=== PATIENT | male | born 1930 | race Caucasian/White ===

== ENCOUNTER → 2016-10-07 | Outpatient (CLI) | payer MEDICARE ==
[~2016-10-07] MED LIST: BACT800T5 PO; CARB25TA9 PO; CART120C PO; CART240C PO; CHOL1CHW5 CHEW; COLA100C PO; COUM5TAB PO; COUM7.5T PO; DILT31TA PO; FERR240T PO; FURO40TA PO; IRON18TA2 PO; LIPI10TA PO; LOSA50TA PO; METO2.5T PO; MULT1TAB46 PO; MULT1TAB85 PO; NAME10TA PO; OMEP20TA PO; POTA-163 PO; POTA10TA2 PO; RANI150C PO; WARF-21 PO; WARF-23 PO; ZANTTAB9 PO
[2016-10-07 11:24] LABS: INTERNATIONAL NORMALIZED RATIO 2.7 RATIO
== END ==
LOC: PLAB 10:45
PROVIDERS: ATTEND Internal Medicine Cardiovascular Disease
DX: I26.99 Other pulmonary embolism without acute cor pulmonale (principal)
CPT/HCPCS: 36415; 85610

== ENCOUNTER → 2016-10-28 | Outpatient (CLI) | payer MEDICARE ==
[2016-10-28 15:08] LABS: INTERNATIONAL NORMALIZED RATIO 1.9 RATIO; PROTHROMBIN TIME - PATIENT 22.1 SEC (9.8-11.6)
== END ==
LOC: PLAB 13:52
PROVIDERS: ATTEND Internal Medicine Cardiovascular Disease
DX: I48.91 Unspecified atrial fibrillation (principal); D64.9 Anemia, unspecified
CPT/HCPCS: 36415; 85610

== ENCOUNTER → 2016-11-12 | Outpatient (CLI) | payer MEDICARE ==
[2016-11-12 15:53] LABS: BICARBONATE 31.6 MEQ/L (21.0-32.0); POTASSIUM 4.3 MEQ/L (3.5-5.1)
[2016-11-12 15:55] LABS: AUTOMATED NEUTROPHIL # 4.8 TH/MM3 (1.8-7.7); BASOPHIL % 0.7 % (0.0-2.0); EOSINOPHIL # 0.3 TH/MM3 (0-0.4); EOSINOPHIL % 4.3 % (0.0-4.0); HEMATOCRIT 30.7 % (39.0-51.0); HEMO FLAGS DIFF FINAL; LYMPH % 13.9 % (9.0-44.0); LYMPHOCYTE # 0.9 TH/MM3 (1.0-4.8); MEAN CELL VOLUME 88.6 FL (80.0-100.0); MEAN CORPUSCULAR HEMOGLOBIN 30.2 PG (27.0-34.0); MEAN CORPUSCULAR HGB CONC 34.1 % (32.0-36.0); NEUT % 72.1 % (16.0-70.0); PLATELET COUNT 225 TH/MM3 (150-450); RED BLOOD COUNT 3.46 MIL/MM3 (4.50-5.90); RED CELL DISTRIBUTION WIDTH 15.3 % (11.6-17.2); WHITE BLOOD COUNT 6.7 TH/MM3 (4.0-11.0)
[2016-11-12 16:03] LABS: INTERNATIONAL NORMALIZED RATIO 1.7 RATIO; PROTHROMBIN TIME - PATIENT 19.4 SEC (9.8-11.6)
== END ==
LOC: CLAB 15:10
PROVIDERS: ATTEND Internal Medicine Nephrology
DX: I48.91 Unspecified atrial fibrillation (principal); I12.9 Hypertensive chronic kidney disease with stage 1 through stage 4 chronic kidney disease, or unspecified chronic kidney disease; N18.3 Chronic kidney disease, stage 3 (moderate)
CPT/HCPCS: 36415; 80048; 85025; 85610

== ENCOUNTER 2016-11-21 07:46 | Inpatient (IN) | payer MEDICARE ==
[2016-11-21] VITALS (29 sets, daily range): BP systolic 98–151; BP diastolic 43–83; PULSE 51–138; RESP 14–20; TEMP 97.6–98.4; O2SAT 92–100
[~2016-11-21] VITALS: Ht 177.8 cm; Wt 68.8 kg
[~2016-11-21 07:46] MED LIST changes: -BACT800T5 PO; -CARB25TA9 PO; -CART120C PO; -CHOL1CHW5 CHEW; -COLA100C PO; -COUM7.5T PO; -DILT31TA PO; -FERR240T PO; -IRON18TA2 PO; -MULT1TAB46 PO; -MULT1TAB85 PO; -OMEP20TA PO; -POTA10TA2 PO; -RANI150C PO; -WARF-21 PO; -WARF-23 PO
[2016-11-21] MEDS ORDERED: WARF-21 PO ×2 (08:15→10:53)
[2016-11-21] MEDS ORDERED: MULT1TAB85 PO (08:15)
[2016-11-21] MEDS ORDERED: CHOL1CHW5 CHEW ×2 (08:15→10:53)
[2016-11-21] MEDS ORDERED: COUM5TAB PO ×2 (08:15→10:53)
[2016-11-21] MEDS ORDERED: CARB25TA9 PO (08:15)
[2016-11-21] MEDS ORDERED: SODIUM CHLORIDE 0.9% FLUSH 5 ML FLUSH IVF PRN (08:30)
[2016-11-21] MEDS ORDERED: DILTIAZEM HCL 25 MG/5 ML VIAL IV PUSH ONE (08:30)
[2016-11-21] MEDS ORDERED: ASPIRIN 81 MG CHEW TAB PO ONE (08:30)
[2016-11-21 08:44] LABS: AUTOMATED NEUTROPHIL # 7.1 TH/MM3 (1.8-7.7); BASOPHIL # 0.1 TH/MM3 (0-0.2); BASOPHIL % 0.7 % (0.0-2.0); EOSINOPHIL # 0.2 TH/MM3 (0-0.4); EOSINOPHIL % 1.9 % (0.0-4.0); HEMATOCRIT 38.5 % (39.0-51.0); HEMO FLAGS DIFF FINAL; LYMPH % 8.9 % (9.0-44.0); LYMPHOCYTE # 0.8 TH/MM3 (1.0-4.8); MEAN CELL VOLUME 88.6 FL (80.0-100.0); MEAN CORPUSCULAR HEMOGLOBIN 30.6 PG (27.0-34.0); MEAN CORPUSCULAR HGB CONC 34.6 % (32.0-36.0); MONO % 7.5 % (0.0-8.0); PLATELET COUNT 241 TH/MM3 (150-450); RED BLOOD COUNT 4.34 MIL/MM3 (4.50-5.90); RED CELL DISTRIBUTION WIDTH 15.4 % (11.6-17.2); WHITE BLOOD COUNT 8.8 TH/MM3 (4.0-11.0)
[2016-11-21 08:54] LABS: INTERNATIONAL NORMALIZED RATIO 1.8 RATIO; PROTHROMBIN TIME - PATIENT 20.7 SEC (9.8-11.6)
[2016-11-21 09:00] LABS: APTT (PATIENT) 26.1 SEC (24.3-30.1)
--- NOTE | 2016-11-21 09:12 | RADRPT ---
EXAM DATE/TIME: 11/21/2016 08:23 [place] COMPARISON: CHEST SINGLE AP, July 10, 2016, 23:50. INDICATIONS : Chest pain. MEDICAL HISTORY : Hypertension. CAD. Atrial fibrillation. SURGICAL HISTORY : None. ENCOUNTER: Initial ACUITY: 1 day PAIN SCORE: 6/10 LOCATION: Bilateral chest FINDINGS: 2 AP views of the chest. The lungs are clear. Cardiomediastinal silhouette within normal limits. No e vidence of pleural effusion or pneumothorax. CONCLUSION: No acute cardiopulmonary disease identified. Eladio Tovar MD on November 21, 2016 at 9:10 Board Certified Radiologist. This report was verified electronically.
[2016-11-21] MEDS ORDERED: DILTIAZEM-CD 240 MG CAP ER PO ONE (09:15)
[2016-11-21 09:46] LABS: ANION GAP 9 MEQ/L (5-15); BICARBONATE 28.5 MEQ/L (21.0-32.0); BLOOD UREA NITROGEN 47 MG/DL (7-18); CHLORIDE 101 MEQ/L (98-107); GLOMERULAR FILTRATION RATE 34 ML/MIN (>89); MAGNESIUM 2.3 MG/DL (1.5-2.5); POTASSIUM 4.3 MEQ/L (3.5-5.1); SODIUM (NA) 138 MEQ/L (136-145)
[2016-11-21] MEDS ORDERED: DILTIAZEM INJ 125 MG in SODIUM CHLORIDE 0.9% INJ 100 ML IV SCH ×2 (10:00→11:15)
--- NOTE | 2016-11-21 10:03 | PD ---
HPI Chief Complaint: Cardiac Complaint Time Seen by Provider: 08:16 Travel History International Travel<30 days: No Contact w/Intl Traveler<30days: No Traveled to known affect area: No History of Present Illness HPI 86-year-old male with history of A. fib on Coumadin, CAD here with complaint of palpitations. Patient was at his care facility when he began to develop palpitations, episodes heart was racing associated pressure/heaviness. No genuine chest pain. Noted to be in A. fib with RVR with heart rates primarily in the 120s per EMS. Patient takes diltiazem for rate control, Coumadin for anticoagulation and has been compliant with these. No shortness of breath, headache. PFSH Past Medical History Hx Anticoagulant Therapy: Yes (COUMADIN) Asthma: No Atrial Fibrillation: Yes Blood Disorders: No Cardiovascular Problems: Yes Chest Pain: No Cerebrovascular Accident: Yes (02/14) Coronary Artery Disease: Yes Diabetes: No Diminished Hearing: No Endocrine: No Gastrointestinal Disorders: No Genitourinary: No Hypertension: Yes Implanted Vascular Access Dvce: Yes Musculoskeletal: Yes Parkinson's Disease: Yes Psychiatric: No Reproductive: No Respiratory: No Sleep Apnea: Yes (CPAP AT NIGHT) Tetanus Vaccination: > 5 Years Past Surgical History Appendectomy: Yes Body Medical Devices: RT HIP REPLACEMENT Cholecystectomy: Yes Eye Surgery: Yes (BILAT CATARACT) Other Surgery: Yes Social History Alcohol Use: No Tobacco Use: No Substance Use: No Allergies-Medications (Allergen,Severity, Reaction): Coded Allergies: No Known Allergies (Unverified , 09/16/16) Reported Meds & Prescriptions Reported Meds & Active Scripts Active Reported Carbidopa-Levodopa 25-100 Mg Tab 4 Tab PO TID Vitamin D3 (Cholecalciferol) 2,000 Unit Chew 2,000 Units CHEW DAILY Coumadin (Warfarin) 5 Mg Tab 5 Mg PO MON TUE SAT Warfarin 7.5 Mg Tab 7.5 Mg PO SUN TUE WED Multivitamin Men (Multiple Vitamins W/ Minerals) 1 Tab Tab 1 Tab PO DAILY Lipitor (Atorvastatin Calcium) 10 Mg Tab 10 Mg PO HS Cartia Xt (Diltiazem ER 24 HR) 240 Mg Caper 240 Mg PO DAILY Losartan (Losartan Potassium) 50 Mg Tab 50 Mg PO DAILY Metolazone 2.5 Mg Tab 2.5 Mg PO MOWEFR Potassium Chloride ER (Potassium Chloride) 20 Meq Tab 20 Meq PO BID Furosemide 40 Mg Tab 40 Mg PO DAILY Review of Systems Except as stated in HPI: all other systems reviewed are Neg Physical Exam Narrative GENERAL: Pleasant elderly male in no acute distress SKIN: Warm and dry. HEAD: Normocephalic. EYES: No scleral icterus. No injection or drainage. ENT: Mucous membranes pink and moist. NECK: Supple CARDIOVASCULAR: Heart rate variable from the 90s to 160s, irregularly irregular rhythm. No murmur appreciated. RESPIRATORY: No accessory muscle use. Clear to auscultation. Breath sounds equal bilaterally. GASTROINTESTINAL: Abdomen soft, non-tender, nondistended. MUSCULOSKELETAL: No obvious deformities No edema. NEUROLOGICAL: Awake and alert. Normal speech. PSYCHIATRIC: Appropriate mood and affect; insight and judgment normal. Data Data Last Documented VS Vital Signs Date Time Temp Pulse Resp B/P Pulse Ox O2 Delivery O2 Flow Rate FiO2 11/21/16 09:00 90 16 114/75 99 Nasal Cannula 2 11/21/16 08:01 97.6 Orders Electrocardiogram (11/21/16 08:16) Basic Metabolic Panel (Bmp) (11/21/16 08:16) Complete Blood Count With Diff (11/21/16 08:16) Magnesium (Mg) (11/21/16 08:16) Prothrombin Time / Inr (Pt) (11/21/16 08:16) Act Partial Throm Time (Ptt) (11/21/16 08:16) Troponin I (11/21/16 08:16) Chest, Single Ap (11/21/16 08:16) Ecg Monitoring (11/21/16 08:16) Bilateral Bp Monitoring (11/21/16 08:16) Iv Access Insert/Monitor (11/21/16 08:16) Oximetry (11/21/16 08:16) Aspirin Chew (Aspirin Chew) (11/21/16 08:30) Sodium Chloride 0.9% Flush (Ns Flush) (11/21/16 08:30) Diltiazem Inj (Cardizem Inj) (11/21/16 08:30) Diltiazem Cd (Cardizem Cd) (11/21/16 09:15) Diltiazem Inj (Cardizem Inj) (11/21/16 10:00) Labs Laboratory Tests Test 11/21/16 11/21/16 08:30 09:10 White Blood Count 8.8 TH/MM3 Red Blood Count 4.34 MIL/MM3 Hemoglobin 13.3 GM/DL Hematocrit 38.5 % Mean Corpuscular Volume 88.6 FL Mean Corpuscular Hemoglobin 30.6 PG Mean Corpuscular Hemoglobin 34.6 % Concent Red Cell Distribution Width 15.4 % Platelet Count 241 TH/MM3 Mean Platelet Volume 8.7 FL Neutrophils (%) (Auto) 81.0 % Lymphocytes (%) (Auto) 8.9 % Monocytes (%) (Auto) 7.5 % Eosinophils (%) (Auto) 1.9 % Basophils (%) (Auto) 0.7 % Neutrophils # (Auto) 7.1 TH/MM3 Lymphocytes # (Auto) 0.8 TH/MM3 Monocytes # (Auto) 0.7 TH/MM3 Eosinophils # (Auto) 0.2 TH/MM3 Basophils # (Auto) 0.1 TH/MM3 CBC Comment DIFF FINAL Differential Comment Prothrombin Time 20.7 SEC Prothromb Time International 1.8 RATIO Ratio Activated Partial 26.1 SEC Thromboplast Time Sodium Level 138 MEQ/L Potassium Level 4.3 MEQ/L Chloride Level 101 MEQ/L Carbon Dioxide Level 28.5 MEQ/L Anion Gap 9 MEQ/L Blood Urea Nitrogen 47 MG/DL Creatinine 1.90 MG/DL Estimat Glomerular Filtration 34 ML/MIN Rate Random Glucose 106 MG/DL Calcium Level 9.0 MG/DL Magnesium Level 2.3 MG/DL Troponin I LESS THAN 0.02 NG/ML MDM Medical Decision Making Medical Screen Exam Complete: Yes Emergency Medical Condition: Yes Medical Record Reviewed: Yes Differential Diagnosis 86-year-old male with history of A. fib, CAD here with palpitations, racing heart feeling and slight chest pressure. Differential includes arrhythmia, electrolyte abnormality, ACS, symptomatic anemia. Narrative Course Patient placed on monitor, IV established and blood obtained. Twelve-lead EKG shows A. fib with RVR with heart rate [address] or T-wave abnormalities and normal intervals. Heart rate variable from the 90s to the 160s. Given 50 mg diltiazem IV with improvement of his heart rate and tone primarily 100s but this was short lasting. He was given oral dose of 240 mg of diltiazem which is his daily dose. Heart rate continues to be tachycardic and he was placed on IV diltiazem drip. CBC, BMP, magnesium, coags,, troponin were obtained and unremarkable. Portal chest x-ray obtained that by my read shows no acute abnormalities. Patient will be admitted for further rate control. Critical Care Narrative Aggregate critical care time was 45 minutes. Time to perform other separately billable procedures was not included in the critical care time. My time did not include minutes spent treating any other patients simultaneously or on activities that did not directly contribute to the patient's treatment. The services I provided to this patient were to treat and/or prevent clinically significant deterioration that could result in: Arrhythmia, cardiopulmonary decompensation, , disability I provided critical care services requiring my management, as noted below: Chart data review, documentation time, medication orders and management, vital sign assessments/reviewing monitor data, ordering and reviewing lab tests, ordering and interpreting/reviewing x-rays and diagnostic studies, care of the patient and discussion of the patient with the admitting physicians. Diagnosis Primary Impression: Atrial fibrillation with rapid ventricular response Admitting Information Admitting Physician Requests: Admit Bertha German MD Nov 21, 2016 10:02
--- NOTE | 2016-11-21 10:35 | HHI.HP ---
HPI Service Family Medicine Primary Care Physician Chrissy Croft MD Admission Diagnosis A. fib with RVR Diagnoses: International Travel<30 Days: No Contact w/Intl Traveler<30days: No Known Affected Area: No History of Present Illness Patient is an 86-year-old male with a PMH significant for A. fib, Parkinson's, CKD. Presented from [facility] due to substernal and right chest pressure that lasted for 30-60 minutes. Pain was resolved after coming to the ED. Started after patient got out of the and was getting dressed. Associated with SOB, heart racing, diaphoresis, nausea without vomiting. There was no radiation of the pain and patient is completely asymptomatic at this time. Prior to these events patient was feeling fine and had no complaints. Of note patient was hospitalized on 07/2016 for similar episode. Follows with Dr. Croft (Gisselle Reece MD R2) Review of Systems Constitutional: COMPLAINS OF: Diaphoretic episodes, Chills Eyes: DENIES: Blurred vision Ears, nose, mouth, throat: DENIES: Throat pain Respiratory: COMPLAINS OF: Shortness of breath, DENIES: Cough Cardiovascular: COMPLAINS OF: Chest pain, Palpitations, DENIES: Syncope, Lower Extremity Edema Gastrointestinal: COMPLAINS OF: Nausea, DENIES: Abdominal pain, Vomiting Genitourinary: DENIES: Dysuria Integumentary: DENIES: Abnormal pigmentation Neurologic: DENIES: Headache (Gisselle Spivey MD R2) Past Family Social History Past Medical History Hypertension History of pulmonary embolism Parkinsonism Sleep apnea Atrial fibrillation History of kidney stones, per EMR History of TIA, per EMR Macular degeneration Chronic kidney disease stage III 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, chronic kidney disease Past Surgical History Cholecystectomy 2009 Appendectomy 1940 Right hip replacement 2006 Reported Medications Reported Meds & Active Scripts Active Vitamin D3 (Cholecalciferol) 2,000 Unit Chew 1,000 Units CHEW DAILY Coumadin (Warfarin) 5 Mg Tab 5 Mg PO Tue SAT Warfarin 7.5 Mg Tab 7.5 Mg PO Tue Losartan (Losartan Potassium) 50 Mg Tab 25 Mg PO TUTH Reported Iron (Ferrous Fumarate) 18 Mg Tab 27 Mg PO DAILY Potassium Chloride ER (Potassium Chloride) 10 Meq Tab 10 Meq PO BID Zantac 75 (Ranitidine HCl) 75 Mg Tab 75 Mg PO DAILY Take 30 to 60 minutes before eating food or drinking beverages that cause heartburn. Carbidopa-Levodopa 25-100 Mg Tab 4 Tab PO TID Multivitamin Men (Multiple Vitamins W/ Minerals) 1 Tab Tab 1 Tab PO DAILY Lipitor (Atorvastatin Calcium) 10 Mg Tab 10 Mg PO HS Cartia Xt (Diltiazem ER 24 HR) 240 Mg Caper 240 Mg PO DAILY Metolazone 2.5 Mg Tab 2.5 Mg PO MOWEFR Furosemide 40 Mg Tab 40 Mg PO DAILY (Gisselle Spivey MD R2) Allergies: Coded Allergies: No Known Allergies (Unverified , 09/16/16) Family History Parents healthy. Denies any other family conditions Social History Lives at [facility] Tobacco: Quit many years ago. Use to smoke 2-3cigs/day Alcohol: denies Illicit: denies (Gisselle Spivey MD R2) Physical Exam Vital Signs Vital Signs Date Time Temp Pulse Resp B/P Pulse Ox O2 Delivery O2 Flow Rate FiO2 11/21/16 10:00 102 16 124/57 97 Nasal Cannula 2 11/21/16 09:45 100 15 98 Nasal Cannula 2 11/21/16 09:30 100 14 97 Nasal Cannula 2 11/21/16 09:15 92 14 99 Nasal Cannula 2 11/21/16 09:00 90 16 114/75 99 Nasal Cannula 2 11/21/16 08:45 96 15 99 Nasal Cannula 2 11/21/16 08:30 124 16 100 Nasal Cannula 2 11/21/16 08:16 134 15 98/71 100 Nasal Cannula 2 11/21/16 08:15 138 15 94 11/21/16 08:06 116 16 96 Nasal Cannula 2 11/21/16 08:01 97.6 116 15 113/83 94 Physical Exam GENERAL: This is a well-nourished, well-developed patient, in no apparent distress. SKIN: No rashes, ecchymoses or lesions. Cool and dry. HEAD: Atraumatic. Normocephalic. No temporal or scalp tenderness. EYES: Pupils equal round and reactive. Extraocular motions intact. No scleral icterus. No injection or drainage. ENT: Nose without bleeding, purulent drainage. Throat without erythema, tonsillar hypertrophy or exudate. Uvula midline. Airway patent. NECK:No JVD or lymphadenopathy. CARDIOVASCULAR: Increased rate with an irregular rhythm but without murmurs, gallops, rubs. RESPIRATORY: Clear to auscultation. Breath sounds equal bilaterally. No wheezes , rales, or rhonchi. GASTROINTESTINAL: Abdomen soft, non-tender, nondistended. No hepato-splenomegaly , or palpable masses. No guarding. MUSCULOSKELETAL: Extremities without clubbing, cyanosis, or edema. No calf tenderness. NEUROLOGICAL: Awake and alert. Motor and sensory grossly within normal limits. Mild hand tremors at rest. Normal speech. Laboratory Laboratory Tests Test 11/21/16 11/21/16 08:30 09:10 White Blood Count 8.8 Red Blood Count 4.34 Hemoglobin 13.3 Hematocrit 38.5 Mean Corpuscular Volume 88.6 Mean Corpuscular Hemoglobin 30.6 Mean Corpuscular Hemoglobin 34.6 Concent Red Cell Distribution Width 15.4 Platelet Count 241 Mean Platelet Volume 8.7 Neutrophils (%) (Auto) 81.0 Lymphocytes (%) (Auto) 8.9 Monocytes (%) (Auto) 7.5 Eosinophils (%) (Auto) 1.9 Basophils (%) (Auto) 0.7 Neutrophils # (Auto) 7.1 Lymphocytes # (Auto) 0.8 Monocytes # (Auto) 0.7 Eosinophils # (Auto) 0.2 Basophils # (Auto) 0.1 CBC Comment DIFF FINAL Differential Comment Prothrombin Time 20.7 Prothromb Time International 1.8 Ratio Activated Partial 26.1 Thromboplast Time Sodium Level 138 Potassium Level 4.3 Chloride Level 101 Carbon Dioxide Level 28.5 Anion Gap 9 Blood Urea Nitrogen 47 Creatinine 1.90 Estimat Glomerular Filtration 34 Rate Random Glucose 106 Calcium Level 9.0 Magnesium Level 2.3 Troponin I LESS THAN 0.02 (Gisselle Spivey MD R2) Result Diagram: 11/21/16 0830 11/21/16 0910 Imaging Reported Meds & Active Scripts Active Vitamin D3 (Cholecalciferol) 2,000 Unit Chew 1,000 Units CHEW DAILY Coumadin (Warfarin) 5 Mg Tab 5 Mg PO Tue SAT Warfarin 7.5 Mg Tab 7.5 Mg PO Tue Losartan (Losartan Potassium) 50 Mg Tab 25 Mg PO TUTH Reported Iron (Ferrous Fumarate) 18 Mg Tab 27 Mg PO DAILY Potassium Chloride ER (Potassium Chloride) 10 Meq Tab 10 Meq PO BID Zantac 75 (Ranitidine HCl) 75 Mg Tab 75 Mg PO DAILY Take 30 to 60 minutes before eating food or drinking beverages that cause heartburn. Carbidopa-Levodopa 25-100 Mg Tab 4 Tab PO TID Multivitamin Men (Multiple Vitamins W/ Minerals) 1 Tab Tab 1 Tab PO DAILY Lipitor (Atorvastatin Calcium) 10 Mg Tab 10 Mg PO HS Cartia Xt (Diltiazem ER 24 HR) 240 Mg Caper 240 Mg PO DAILY Metolazone 2.5 Mg Tab 2.5 Mg PO MOWEFR Furosemide 40 Mg Tab 40 Mg PO DAILY (Gisselle Spivey MD R2) Assessment and Plan Assessment and Plan Patient is an 86-year-old male PMH significant for A. fib, Parkinson's, CKD. Admitted for A. fib. Code Status Full Discussed Condition With Dr. Olmos and Dr. Ochoa (Gisselle Spivey MD R2) Attending Attestation Patient seen and examined. Case reviewed and discussed with the resident team. Agree with plan of care as discussed with me and documented in the resident note. (Jannet Ochoa MD) Problem List: (1) Atrial fibrillation with rapid ventricular response Status: Acute Plan: Presented due to sudden onset of palpitations and chest pain and found to have A. fib with RVR which did quickly resolved with IV Cardizem in the ED. Patient currently asymptomatic and rate has much improved. -EKG consistent with A. fib with RVR. No ST changes noted -ACS evaluation -INR slightly subtherapeutic, continue to monitor with no adjustments at this time -TSH and magnesium ordered -UA ordered Imaging: * CXR: Negative * Echo ordered Medications: * Cardizem drip, restart PO Cardizem tomorrow at an increased dose from patient' s home medication * Atorvastatin 10 mg * Losartan 25 mg (Tuesday and ) * Potassium 10 meq BID * Lasix 40 mg * Metolazone 2.5mg (We) * PO Cardizem 90mg QID to begin 11/22, increased from home Cardizem ER of 270mg (2) History of Parkinson's disease Status: Acute Plan: Continue home carbidopa levodopa (3) Nutrition, metabolism, and development symptoms Status: Acute Plan: Diet: Heart healthy Fluids: None Electrolytes: Unremarkable DVT prophylaxis: Continue home Coumadin GI prophylaxis: Continue home Pepcid (Gisselle Spivey MD R2) Physician Certification 2 Midnight Certification Type: Admission for Inpatient Services Order for Inpatient Services The services are ordered in accordance with Medicare regulations or non- Medicare payer requirements, as applicable. In the case of services not specified as inpatient-only, they are appropriately provided as inpatient services in accordance with the 2-midnight benchmark. Estimated LOS (days): 2 days is the estimated time the patient will need to remain in the hospital, assuming treatment plan goals are met and no additional complications. Post-Hospital Plan: [facility] ([facility] (Gisselle Spivey MD R2) Gisselle Spivey MD R2 Nov 21, 2016 10:35 Jannet Ochoa MD Nov 21, 2016 15:44
[2016-11-21] MEDS ORDERED: POTA10TA2 PO (10:53)
[2016-11-21] MEDS ORDERED: IRON18TA2 PO (10:53)
[2016-11-21] MEDS ORDERED: ZANTTAB9 PO (10:53)
[2016-11-21] MEDS ORDERED: LOSA50TA PO (10:53)
[2016-11-21] MEDS ORDERED: SODIUM CHLORIDE 0.9% FLUSH 5 ML FLUSH FLUSH PRN (11:15)
[2016-11-21] MEDS ORDERED: WARFARIN SOD 7.5 MG TAB PO SCH ×2 (11:30→16:00)
[2016-11-21 13:29] LABS: CREATINE KINASE 78 U/L (39-308)
[2016-11-21] MEDS ORDERED: hydrALAZINE HCL 20 MG/ML VIAL IV PRN (13:30)
[2016-11-21] MEDS ORDERED: CARBIDOPA/LEVODOPA 25 MG/250 MG TAB PO SCH (14:00)
--- NOTE | 2016-11-21 15:30 | HHI.FPPN ---
Subjective Remarks Patient seen and examined, discussed with the medicine team. Patient is an 86-year-old male with known history of atrial fibrillation, sleep apnea, hypertension, and Parkinson's disease who developed rapid heart rate and chest discomfort and was brought to the emergency department. He was initially rate controlled with Cardizem drip. At the time seen, he had no complaints, family was with him, and he wanted something to eat. At the time of my exam, he denied chest pain, shortness of breath, fever, chills, abdominal pain. Patient had an admission last fall for similar presentation. Please see history and physical examination for this admission for additional past, family, social history and review of systems. Other than as noted all systems negative. Objective Vitals Vital Signs Date Time Temp Pulse Resp B/P Pulse Ox O2 Delivery O2 Flow Rate FiO2 11/21/16 14:00 60 17 110/56 98 Nasal Cannula 2 11/21/16 13:30 60 14 99 Nasal Cannula 2 11/21/16 13:00 66 20 112/51 98 Nasal Cannula 2 11/21/16 12:45 58 14 98 Nasal Cannula 2 11/21/16 12:30 58 14 98 Nasal Cannula 2 11/21/16 12:15 60 14 99 Nasal Cannula 2 11/21/16 12:00 58 16 122/58 98 Nasal Cannula 2 11/21/16 11:00 91 16 136/74 96 Nasal Cannula 2 11/21/16 10:00 102 16 124/57 97 Nasal Cannula 2 11/21/16 09:45 100 15 98 Nasal Cannula 2 11/21/16 09:30 100 14 97 Nasal Cannula 2 11/21/16 09:15 92 14 99 Nasal Cannula 2 11/21/16 09:00 90 16 114/75 99 Nasal Cannula 2 11/21/16 08:45 96 15 99 Nasal Cannula 2 11/21/16 08:30 124 16 100 Nasal Cannula 2 11/21/16 08:16 134 15 98/71 100 Nasal Cannula 2 11/21/16 08:15 138 15 94 11/21/16 08:06 116 16 96 Nasal Cannula 2 11/21/16 08:01 97.6 116 15 113/83 94 Result Diagram: 11/21/16 0830 11/21/16 0910 Other Results Laboratory Tests Test 11/21/16 11/21/16 11/21/16 08:30 09:10 12:25 White Blood Count 8.8 TH/MM3 Red Blood Count 4.34 MIL/MM3 Hemoglobin 13.3 GM/DL Hematocrit 38.5 % Mean Corpuscular Volume 88.6 FL Mean Corpuscular Hemoglobin 30.6 PG Mean Corpuscular Hemoglobin 34.6 % Concent Red Cell Distribution Width 15.4 % Platelet Count 241 TH/MM3 Mean Platelet Volume 8.7 FL Neutrophils (%) (Auto) 81.0 % Lymphocytes (%) (Auto) 8.9 % Monocytes (%) (Auto) 7.5 % Eosinophils (%) (Auto) 1.9 % Basophils (%) (Auto) 0.7 % Neutrophils # (Auto) 7.1 TH/MM3 Lymphocytes # (Auto) 0.8 TH/MM3 Monocytes # (Auto) 0.7 TH/MM3 Eosinophils # (Auto) 0.2 TH/MM3 Basophils # (Auto) 0.1 TH/MM3 CBC Comment DIFF FINAL Differential Comment Prothrombin Time 20.7 SEC Prothromb Time International 1.8 RATIO Ratio Activated Partial 26.1 SEC Thromboplast Time Sodium Level 138 MEQ/L Potassium Level 4.3 MEQ/L Chloride Level 101 MEQ/L Carbon Dioxide Level 28.5 MEQ/L Anion Gap 9 MEQ/L Blood Urea Nitrogen 47 MG/DL Creatinine 1.90 MG/DL Estimat Glomerular Filtration 34 ML/MIN Rate Random Glucose 106 MG/DL Calcium Level 9.0 MG/DL Magnesium Level 2.3 MG/DL Troponin I LESS THAN 0.02 LESS THAN 0.02 NG/ML NG/ML Total Creatine Kinase 78 U/L Imaging Twelve-lead EKG shows A. fib with RVR with heart rate [address] or T-wave abnormalities and normal intervals. Heart rate variable from the 90s to the 160s. Objective Remarks O. CONSTITUTIONAL/GEN: normally nourished, in NAD. Sitting up in bed. Asking for lunch. EYES: conjunctiva normal, PERRLA, EOMI. ENT: Mouth and pharynx normal. NECK: No palpable lymphadenopathy LUNGS: clear A-P, respiratory effort is normal. No wheezes, Rales or rhonchi. CARDIOVASCULAR: Irregular rhythm at 63 bpm at the time of my exam. No significant edema. GI/ABD: soft without masses, without organomegaly. Bowel sounds present NEURO: No focal deficits. He is not particularly tremulous. SKIN: color normal, no rashes noted. HEME/LYMPH: no bruising, petechia or significant adenopathy MUSC: Extremities are normal in appearance. PSYCH/MENTAL STATUS: Alert and oriented x 2. A/P Assessment and Plan Patient is an 86-year-old male H significant for A. fib, Parkinson's, CKD. Admitted for A. fib. Attending Attestation Patient seen and examined. Case reviewed and discussed with the resident team. Agree with plan of care as discussed with me and documented in the resident note. Problem List: (1) Atrial fibrillation with rapid ventricular response Status: Acute Plan: Presented due to sudden onset of palpitations and chest pain and found to have A. fib with RVR which did quickly resolved with IV Cardizem in the ED. Patient currently asymptomatic and rate has much improved. -EKG consistent with A. fib with RVR. No ST changes noted -ACS evaluation -INR slightly subtherapeutic, continue to monitor with no adjustments at this time -TSH and magnesium ordered -UA ordered Imaging: * CXR: Negative * Echo ordered Medications: * Cardizem drip, restart PO Cardizem tomorrow at an increased dose from patient' s home medication * Atorvastatin 10 mg * Losartan 25 mg (Tuesday and ) * Potassium 10 meq BID * Lasix 40 mg * Metolazone 2.5mg () * PO Cardizem 90mg QID to begin 11/22, increased from home Cardizem ER of 270mg (2) History of Parkinson's disease Status: Acute Plan: Continue home carbidopa levodopa (3) Nutrition, metabolism, and development symptoms Status: Acute Plan: Diet: Heart healthy Fluids: None Electrolytes: Unremarkable DVT prophylaxis: Continue home Coumadin GI prophylaxis: Continue home Jannet Benedict MD Nov 21, 2016 15:30
[2016-11-21] MEDS: CARBIDOPA/LEVODOPA 25 MG/100 MG TAB PO SCH ×2 (15:39→20:42)
[2016-11-21 19:39] LABS: MAGNESIUM 2.2 MG/DL (1.5-2.5)
[2016-11-21] MEDS: POTASSIUM CHLORIDE 10 MEQ CONTROLLED RELEASE TAB PO SCH (20:42)
[2016-11-21] MEDS: SODIUM CHLORIDE 0.9% FLUSH 5 ML FLUSH FLUSH SCH (20:42)
[2016-11-21] MEDS ORDERED: ATORVASTATIN 10 MG TAB PO SCH (21:00)
[2016-11-22] VITALS (16 sets, daily range): BP systolic 108–127; BP diastolic 59–63; PULSE 46–62; RESP 16–17; TEMP 97.9–98.5; O2SAT 92–98
[2016-11-22] MEDS: CARBIDOPA/LEVODOPA 25 MG/100 MG TAB PO SCH (06:16)
--- NOTE | 2016-11-22 06:42 | HHI.DCPOC ---
Discharge Care Plan Diagnosis: (1) Atrial fibrillation with rapid ventricular response Goals to Promote Your Health * To prevent worsening of your condition and complications * To maintain your health at the optimal level Directions to Meet Your Goals Take your medications as prescribed Follow your dietary instruction Follow activity as directed Keep your appointments as scheduled Take your immunizations and boosters as scheduled If your symptoms worsen call your PCP, if no PCP go to Urgent Care Center or Emergency Room Smoking is Dangerous to Your Health. Avoid second hand smoke Call the 24-hour hour crisis hotline for domestic abuse at Xavi Olmos MD R1 Nov 22, 2016 06:41
[2016-11-22 07:34] LABS: HEMATOCRIT 31.4 % (39.0-51.0); MEAN CELL VOLUME 88.2 FL (80.0-100.0); MEAN CORPUSCULAR HEMOGLOBIN 30.5 PG (27.0-34.0); MEAN CORPUSCULAR HGB CONC 34.6 % (32.0-36.0); PLATELET COUNT 218 TH/MM3 (150-450); RED BLOOD COUNT 3.56 MIL/MM3 (4.50-5.90); RED CELL DISTRIBUTION WIDTH 15.5 % (11.6-17.2); REVIEW FLAG FINAL
[2016-11-22 07:37] LABS: INTERNATIONAL NORMALIZED RATIO 1.9 RATIO
[2016-11-22] MEDS: POTASSIUM CHLORIDE 10 MEQ CONTROLLED RELEASE TAB PO SCH (08:38)
[2016-11-22] MEDS: SODIUM CHLORIDE 0.9% FLUSH 5 ML FLUSH FLUSH SCH (08:39)
[2016-11-22] MEDS ORDERED: FUROSEMIDE 40 MG TAB PO SCH (09:00)
[2016-11-22] MEDS ORDERED: DILTIAZEM-CD 240 MG CAP ER PO SCH (09:00)
[2016-11-22] MEDS ORDERED: DILTIAZEM HCL 90 MG TAB PO SCH ×2 (09:00)
[2016-11-22] MEDS ORDERED: FAMOTIDINE 20 MG TAB PO SCH (09:00)
--- NOTE | 2016-11-22 11:58 | HHI.FPPN ---
Subjective Remarks No acute events overnight. Afebrile, vital signs stable. Patient with heart rate that has been remained well-controlled with his home by mouth medications. Patient has no complaints at this time and wishes to return to his [facility]. ( Maryan Licona MD R3) Objective Vitals Vital Signs Date Time Temp Pulse Resp B/P Pulse Ox O2 Delivery O2 Flow Rate FiO2 11/22/16 11:36 98.0 58 17 111/59 98 11/22/16 11:00 54 11/22/16 10:00 57 11/22/16 09:00 55 11/22/16 08:00 57 11/22/16 07:30 97.9 53 17 108/62 92 11/22/16 07:00 50 11/22/16 06:00 47 11/22/16 05:00 51 11/22/16 04:00 46 11/22/16 03:16 98.5 62 16 127/63 97 11/22/16 03:00 51 11/22/16 02:00 55 11/22/16 01:07 55 11/22/16 00:00 54 11/21/16 23:16 98.2 57 17 118/43 96 11/21/16 23:00 52 11/21/16 22:00 51 11/21/16 21:00 56 11/21/16 20:00 54 11/21/16 19:16 98.4 104 16 113/57 92 11/21/16 19:00 60 11/21/16 17:00 66 11/21/16 16:00 62 11/21/16 15:20 97.6 58 17 151/79 100 11/21/16 15:00 58 11/21/16 14:00 60 17 110/56 98 Nasal Cannula 2 11/21/16 13:30 60 14 99 Nasal Cannula 2 11/21/16 13:00 66 20 112/51 98 Nasal Cannula 2 11/21/16 12:45 58 14 98 Nasal Cannula 2 11/21/16 12:30 58 14 98 Nasal Cannula 2 11/21/16 12:15 60 14 99 Nasal Cannula 2 11/21/16 12:00 58 16 122/58 98 Nasal Cannula 2 I/O 11/21/16 11/21/16 11/21/16 11/22/16 11/22/16 11/22/16 07:00 15:00 23:00 07:00 15:00 23:00 Intake Total 720 ml 720 ml Output Total 250 ml 800 ml Balance 470 ml -80 ml Intake Oral 720 ml 720 ml Output Urine Total 250 ml 800 ml (Maryan Licona MD R3) Result Diagram: 11/22/16 0558 11/21/16 0910 Objective Remarks O. CONSTITUTIONAL/GEN: normally nourished, in NAD. Sitting up in bed. Asking for lunch. EYES: conjunctiva normal, PERRLA, EOMI. ENT: Mouth and pharynx normal. NECK: No palpable lymphadenopathy LUNGS: clear A-P, respiratory effort is normal. No wheezes, Rales or rhonchi. CARDIOVASCULAR: Irregular rhythm, rate controlled. No significant edema. GI/ABD: soft without masses, without organomegaly. Bowel sounds present NEURO: No focal deficits. He is not particularly tremulous. SKIN: color normal, no rashes noted. HEME/LYMPH: no bruising, petechia or significant adenopathy MUSC: Extremities are normal in appearance. PSYCH/MENTAL STATUS: Alert and oriented x 2. (Maryan Licona MD R3) A/P Assessment and Plan Patient is an 86-year-old male PMH significant for A. fib, Parkinson's, CKD. Admitted for A. fib with RVR. Discharge Planning Return to [facility] today (Maryan Licona MD R3) Attending Attestation Patient seen and examined. Case reviewed and discussed with the resident team. Agree with plan of care as discussed with me and documented in the resident note. (Jannet Ochoa MD) Problem List: (1) Atrial fibrillation with rapid ventricular response Status: Resolved Plan: Resolved. ACS rule out negative. Continue patient's home medications: Diltiazem CD 240 mg by mouth daily Coumadin 5 mg (MThS), 7.5 mg (SuTW) Atorvastatin 10 mg Losartan 25 mg Lasix 40 mg Potassium 10 mEq twice a day Metolazone 2.5 mg (MWF) (2) History of Parkinson's disease Status: Acute Plan: Continue home carbidopa levodopa (3) Nutrition, metabolism, and development symptoms Status: Acute Plan: Diet: Heart healthy Fluids: None Electrolytes: Unremarkable DVT prophylaxis: Continue home Coumadin GI prophylaxis: Continue home Pepcid (Maryan Licona MD R3) Maryan Licona MD R3 Nov 22, 2016 11:58 Jannet Ochoa MD Nov 22, 2016 14:01
[2016-11-22] MEDS ORDERED: METOLAZONE 2.5 MG TAB PO SCH (12:00)
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
--- NOTE | 2016-11-22 14:44 | EKG ---
Date Performed: 11/21/2016 Time Performed: 07:57:27 PTAGE: 86 years EKG: ATRIAL FIBRILLATION WITH RAPID VENTRICULAR RESPONSE MARKED LEFT AXIS DEVIATION MODERATE ST DEPRESSION ABNORMAL ECG PREVIOUS TRACING : 09/16/2016 12.38 DOCTOR: Taran Corrales Interpretating Date/Time 11/22/2016 14:37:56
[2016-11-22] MEDS ORDERED: WARFARIN SOD 5 MG TAB PO SCH (16:00)
[2016-11-23] MEDS ORDERED: LOSARTAN 25 MG TAB PO SCH (12:00)
== END 2016-11-22 13:29 | DRG 309 ==
LOC: NEPC 07:46 → NEDA 10:12 → HCIN 15:20
PROVIDERS: ADMIT Family Medicine; ATTEND Family Medicine
DX: I48.0 Paroxysmal atrial fibrillation (principal); I13.0 Hypertensive heart and chronic kidney disease with heart failure and stage 1 through stage 4 chronic kidney disease, or unspecified chronic kidney disease; G20 Parkinson's disease; I50.32 Chronic diastolic (congestive) heart failure; N18.3 Chronic kidney disease, stage 3 (moderate); H35.30 Unspecified macular degeneration; K21.9 Gastro-esophageal reflux disease without esophagitis; G47.30 Sleep apnea, unspecified; Z79.01 Long term (current) use of anticoagulants; Z87.891 Personal history of nicotine dependence; Z86.711 Personal history of pulmonary embolism
CPT/HCPCS: 71010; 80048; 82550; 83735; 84443; 84484; 85025; 85027; 85610; 85730; 93005; 96374

== ENCOUNTER → 2017-01-18 | Outpatient (CLI) | payer MEDICARE ==
[~2017-01-18] MED LIST changes: +BACT800T5 PO; +CARB25TA9 PO; +CART120C PO; +CHOL100025 CHEW; +CHOL1CHW5 CHEW; +COLA100C PO; +COUM7.5T PO; +DILT31TA PO; +FERR240T PO; +IRON18TA2 PO; +MULT1TAB46 PO; +MULT1TAB85 PO; -NAME10TA PO; +OMEP20TA PO; -POTA-163 PO; +POTA10TA2 PO; +RANI150C PO; +TRAZ50TA12 PO; +WARF-21 PO; +WARF-23 PO
[2017-01-18 09:48] LABS: INTERNATIONAL NORMALIZED RATIO 2.6 RATIO; PROTHROMBIN TIME - PATIENT 29.9 SEC (9.8-11.6)
== END ==
LOC: PLAB 09:16
PROVIDERS: ATTEND Internal Medicine Cardiovascular Disease
DX: I63.9 Cerebral infarction, unspecified (principal)
CPT/HCPCS: 36415; 85610

== ENCOUNTER 2017-01-21 20:03 | Inpatient (IN) | payer MEDICARE ==
[~2017-01-21] VITALS: Ht 175.3 cm; Wt 67.1 kg
[~2017-01-21 20:03] MED LIST changes: -BACT800T5 PO; -CART120C PO; -CHOL100025 CHEW; -COLA100C PO; -COUM7.5T PO; -DILT31TA PO; -FERR240T PO; -MULT1TAB46 PO; -OMEP20TA PO; -RANI150C PO; -TRAZ50TA12 PO; -WARF-23 PO
[2017-01-21 20:06] VITALS: BP 108/64; PULSE 121; RESP 20; TEMP 97.5; O2SAT 98
[2017-01-21] MEDS ORDERED: CART120C PO (20:52)
--- NOTE | 2017-01-21 20:54 | PD ---
HPI Chief Complaint: GI Complaint Time Seen by Provider: 20:31 Travel History International Travel<30 days: No Contact w/Intl Traveler<30days: No Traveled to known affect area: No History of Present Illness HPI This 86-year-old male is here with complaint of diarrhea. He lives in an assisted living facility. He started having diarrhea yesterday. Is not been drinking much today. He is not complaining of abdominal pain. He does have a history of paroxysmal atrial fibrillation and is in atrial fibrillation now. He is on Coumadin and CARTIA. He also has a history of Parkinson's disease and is on levodopa. He denies any abdominal pain. His daughter says the diarrhea has been almost constant. PFSH Past Medical History Hx Anticoagulant Therapy: Yes (COUMADIN) Asthma: No Atrial Fibrillation: Yes Blood Disorders: No Cardiovascular Problems: Yes Chest Pain: No Cerebrovascular Accident: Yes (02/14) Coronary Artery Disease: Yes Diabetes: No Diminished Hearing: No Endocrine: No Gastrointestinal Disorders: No Genitourinary: No Hypertension: Yes Implanted Vascular Access Dvce: Yes Musculoskeletal: Yes Parkinson's Disease: Yes Psychiatric: No Reproductive: No Respiratory: No Sleep Apnea: Yes (CPAP AT NIGHT) Tetanus Vaccination: < 5 Years Influenza Vaccination: Yes Past Surgical History Appendectomy: Yes Body Medical Devices: RT HIP REPLACEMENT Cholecystectomy: Yes Eye Surgery: Yes (BILAT CATARACT) Other Surgery: Yes Social History Alcohol Use: No Tobacco Use: No Substance Use: No Allergies-Medications (Allergen,Severity, Reaction): Coded Allergies: No Known Allergies (Unverified , 01/21/17) Reported Meds & Prescriptions Reported Meds & Active Scripts Active Vitamin D3 (Cholecalciferol) 2,000 Unit Chew 1,000 Units CHEW DAILY Warfarin 7.5 Mg Tab 7.5 Mg PO Tue Losartan (Losartan Potassium) 50 Mg Tab 25 Mg PO TUTH Reported Cartia Xt (Diltiazem ER 24 HR) 120 Mg Caper 120 Mg PO DAILY Iron (Ferrous Fumarate) 18 Mg Tab 27 Mg PO DAILY Potassium Chloride ER (Potassium Chloride) 10 Meq Tab 10 Meq PO BID Zantac 75 (Ranitidine HCl) 75 Mg Tab 75 Mg PO DAILY Take 30 to 60 minutes before eating food or drinking beverages that cause heartburn. Carbidopa-Levodopa 25-100 Mg Tab 4 Tab PO TID Multivitamin Men (Multiple Vitamins W/ Minerals) 1 Tab Tab 1 Tab PO DAILY Lipitor (Atorvastatin Calcium) 10 Mg Tab 10 Mg PO HS Metolazone 2.5 Mg Tab 2.5 Mg PO MOWEFR Furosemide 40 Mg Tab 40 Mg PO DAILY Review of Systems General / Constitutional: No: Fever, Chills Eyes: No: Diploplia, Blurred Vision HENT: No: Headaches Cardiovascular: Positive: Tachycardia, No: Chest Pain or Discomfort Respiratory: No: Shortness of Breath Gastrointestinal: Positive: Diarrhea, Loss of Appetite Genitourinary: No: Urgency, Frequency Musculoskeletal: No: Myalgias Skin: No Rash, No Itching Neurologic: Positive: Weakness, No: Syncope Physical Exam Narrative GENERAL: Thin male. Heart rate on arrival is 82/60 SKIN: Focused skin assessment warm/dry. HEAD: Atraumatic. Normocephalic. EYES: Pupils equal and round. No scleral icterus. No injection or drainage. ENT: No nasal bleeding or discharge. Mucous membranes pink and moist. NECK: Trachea midline. No JVD. CARDIOVASCULAR: Rapid irregular rate and rhythm. No murmur appreciated. RESPIRATORY: No accessory muscle use. Clear to auscultation. Breath sounds equal bilaterally. GASTROINTESTINAL: Abdomen soft, non-tender, nondistended. Hepatic and splenic margins not palpable. Stool is brown but trace positive for blood MUSCULOSKELETAL: No obvious deformities. No clubbing. No cyanosis. No edema. NEUROLOGICAL: Awake and alert. No obvious cranial nerve deficits. Motor grossly within normal limits. Normal speech. PSYCHIATRIC: Appropriate mood and affect; insight and judgment normal. Data Data Last Documented VS Vital Signs Date Time Temp Pulse Resp B/P Pulse Ox O2 Delivery O2 Flow Rate FiO2 01/21/17 21:22 110 18 118/77 98 Room Air 01/21/17 20:06 97.5 Orders Electrocardiogram (01/21/17 20:48) Complete Blood Count With Diff (01/21/17 20:48) Comprehensive Metabolic Panel (01/21/17 20:48) Troponin I (01/21/17 20:48) Prothrombin Time / Inr (Pt) (01/21/17 20:48) Act Partial Throm Time (Ptt) (01/21/17 20:48) Urinalysis - C+S If Indicated (01/21/17 20:48) Magnesium (Mg) (01/21/17 20:48) Sodium Chlor 0.9% 1000 Ml Inj (Ns 1000 M (01/21/17 21:00) Rotavirus Ag Detection (Stool) (01/21/17 20:50) Enteric Path (Stool) (01/21/17 20:50) C Diff Toxin Pcr (01/21/17 20:50) Ns + Kcl 40 Meq Inj (Ns + Kcl 40 Meq Inj (01/21/17 21:30) Labs Laboratory Tests Test 01/21/17 20:30 White Blood Count 9.8 TH/MM3 Red Blood Count 4.42 MIL/MM3 Hemoglobin 13.3 GM/DL Hematocrit 38.3 % Mean Corpuscular Volume 86.6 FL Mean Corpuscular Hemoglobin 30.1 PG Mean Corpuscular Hemoglobin 34.7 % Concent Red Cell Distribution Width 14.1 % Platelet Count 290 TH/MM3 Mean Platelet Volume 7.7 FL Neutrophils (%) (Auto) 92.3 % Lymphocytes (%) (Auto) 2.4 % Monocytes (%) (Auto) 5.1 % Eosinophils (%) (Auto) 0.1 % Basophils (%) (Auto) 0.1 % Neutrophils # (Auto) 9.1 TH/MM3 Lymphocytes # (Auto) 0.2 TH/MM3 Monocytes # (Auto) 0.5 TH/MM3 Eosinophils # (Auto) 0.0 TH/MM3 Basophils # (Auto) 0.0 TH/MM3 CBC Comment DIFF FINAL Differential Comment Prothrombin Time 34.5 SEC Prothromb Time International 3.0 RATIO Ratio Activated Partial 41.8 SEC Thromboplast Time Sodium Level 137 MEQ/L Potassium Level 3.8 MEQ/L Chloride Level 102 MEQ/L Carbon Dioxide Level 23.8 MEQ/L Anion Gap 11 MEQ/L Blood Urea Nitrogen 64 MG/DL Creatinine 2.40 MG/DL Estimat Glomerular Filtration 26 ML/MIN Rate Random Glucose 151 MG/DL Calcium Level 9.1 MG/DL Magnesium Level 2.3 MG/DL Total Bilirubin 0.5 MG/DL Aspartate Amino Transf 37 U/L (AST/SGOT) Alanine Aminotransferase 17 U/L (ALT/SGPT) Alkaline Phosphatase 116 U/L Troponin I LESS THAN 0.02 NG/ML Total Protein 7.9 GM/DL Albumin 3.8 GM/DL [facility] Medical Decision Making Medical Screen Exam Complete: Yes Emergency Medical Condition: Yes Medical Record Reviewed: Yes Differential Diagnosis Differential includes dehydration, electrolyte imbalance, atrial fibrillation Narrative Course Urine is 64 with creatinine of 2.4. His white count is 9.8. He has been given IV fluids and his blood pressure has improved. He remains in atrial fibrillation with a rate about 120 Diagnosis Primary Impression: Dehydration Additional Impressions: Atrial fibrillation with rapid ventricular response Acute kidney injury (nontraumatic) Fly Huang MD Jan 21, 2017 20:53
[2017-01-21 21:00] LABS: AUTOMATED NEUTROPHIL # 9.1 TH/MM3 (1.8-7.7); BASOPHIL % 0.1 % (0.0-2.0); EOSINOPHIL % 0.1 % (0.0-4.0); HEMATOCRIT 38.3 % (39.0-51.0); HEMO FLAGS DIFF FINAL; LYMPH % 2.4 % (9.0-44.0); LYMPHOCYTE # 0.2 TH/MM3 (1.0-4.8); MEAN CELL VOLUME 86.6 FL (80.0-100.0); MEAN CORPUSCULAR HEMOGLOBIN 30.1 PG (27.0-34.0); MEAN CORPUSCULAR HGB CONC 34.7 % (32.0-36.0); MONO % 5.1 % (0.0-8.0); NEUT % 92.3 % (16.0-70.0); PLATELET COUNT 290 TH/MM3 (150-450); RED BLOOD COUNT 4.42 MIL/MM3 (4.50-5.90); RED CELL DISTRIBUTION WIDTH 14.1 % (11.6-17.2); WHITE BLOOD COUNT 9.8 TH/MM3 (4.0-11.0)
[2017-01-21] MEDS ORDERED: SODIUM CHLOR 0.9% 1000 ML INJ 1,000 ML IV ONE (21:00)
[2017-01-21 21:08] LABS: CHLORIDE 102 MEQ/L (98-107); POTASSIUM 3.8 MEQ/L (3.5-5.1); SODIUM (NA) 137 MEQ/L (136-145)
[2017-01-21 21:12] LABS: ANION GAP 11 MEQ/L (5-15); BICARBONATE 23.8 MEQ/L (21.0-32.0); BLOOD UREA NITROGEN 64 MG/DL (7-18); MAGNESIUM 2.3 MG/DL (1.5-2.5)
[2017-01-21 21:14] LABS: APTT (PATIENT) 41.8 SEC (24.3-30.1); PROTHROMBIN TIME - PATIENT 34.5 SEC (9.8-11.6)
[2017-01-21 21:15] LABS: ALT (GPT) 17 U/L (12-78); AST (GOT) 37 U/L (15-37); GLOMERULAR FILTRATION RATE 26 ML/MIN (>89)
[2017-01-21 21:17] LABS: TOTAL BILIRUBIN ADULT 0.5 MG/DL (0.2-1.0)
[2017-01-21 21:18] LABS: ALKALINE PHOSPHATASE 116 U/L (45-117)
[2017-01-21 21:22] VITALS: BP 118/77; PULSE 110; RESP 18; O2SAT 98
[2017-01-21] MEDS ORDERED: NS + KCL 40 MEQ INJ 1,000 ML IV ONE (21:30)
[2017-01-21] MEDS ORDERED: DILTIAZEM INJ 125 MG in SODIUM CHLORIDE 0.9% INJ 100 ML IV SCH (22:00)
[2017-01-21] MEDS ORDERED: SODIUM CHLORIDE 0.9% FLUSH 10 ML FLUSH IVF PRN (22:00)
[2017-01-21] MEDS ORDERED: DILTIAZEM HCL 25 MG/5 ML VIAL IV ONE (22:00)
[2017-01-21] MEDS ORDERED: SODIUM CHLOR 0.9% 1000 ML INJ 1,000 ML IV SCH (22:04)
[2017-01-21] MEDS ORDERED: BISACODYL 10 MG SUPP RECTAL PRN (22:15)
[2017-01-21] MEDS ORDERED: ACETAMINOPHEN 325 MG TAB PO PRN (22:15)
[2017-01-21] MEDS ORDERED: MORPHINE SULFATE 4 MG/ML INJ IV PRN (22:15)
[2017-01-21] MEDS ORDERED: SODIUM CHLORIDE 0.9% FLUSH 10 ML FLUSH IV FLUSH PRN (22:15)
[2017-01-21] MEDS ORDERED: ONDANSETRON HCL 4 MG/2 ML VIAL IVP PRN (22:15)
[2017-01-21] MEDS ORDERED: ACETAMINOPHEN/HYDROcodone 325 MG/5 MG TAB PO PRN (22:15)
[2017-01-21 23:40] VITALS: BP 111/74; PULSE 89; RESP 18; O2SAT 98
[2017-01-22] VITALS (31 sets, daily range): BP systolic 95–123; BP diastolic 47–72; PULSE 58–108; RESP 11–42; TEMP 97.5–98.5; O2SAT 93–100
[2017-01-22 00:34] LABS: C. DIFF EPI 027 PRESUMPTIVE NEGATIVE (NEGATIVE); C. DIFF TOXIN PCR NEGATIVE (NEGATIVE)
[2017-01-22 06:26] LABS: AUTOMATED NEUTROPHIL # 5.8 TH/MM3 (1.8-7.7); BASOPHIL % 0.2 % (0.0-2.0); EOSINOPHIL % 0.3 % (0.0-4.0); HEMATOCRIT 34.9 % (39.0-51.0); HEMO FLAGS DIFF FINAL; LYMPHOCYTE # 0.4 TH/MM3 (1.0-4.8); MEAN CELL VOLUME 86.9 FL (80.0-100.0); MEAN CORPUSCULAR HEMOGLOBIN 29.3 PG (27.0-34.0); MEAN CORPUSCULAR HGB CONC 33.7 % (32.0-36.0); NEUT % 83.5 % (16.0-70.0); PLATELET COUNT 265 TH/MM3 (150-450); RED BLOOD COUNT 4.02 MIL/MM3 (4.50-5.90); RED CELL DISTRIBUTION WIDTH 14.3 % (11.6-17.2); WHITE BLOOD COUNT 6.9 TH/MM3 (4.0-11.0)
[2017-01-22 06:39] LABS: CHLORIDE 108 MEQ/L (98-107); POTASSIUM 3.1 MEQ/L (3.5-5.1); SODIUM (NA) 141 MEQ/L (136-145)
[2017-01-22 06:42] LABS: INTERNATIONAL NORMALIZED RATIO 3.2 RATIO; PROTHROMBIN TIME - PATIENT 36.7 SEC (9.8-11.6)
[2017-01-22] MEDS: DILTIAZEM HCL 30 MG TAB PO SCH ×3 (06:47→18:00)
[2017-01-22 07:49] LABS: ALKALINE PHOSPHATASE 89 U/L (45-117); ALT (GPT) 17 U/L (12-78); ANION GAP 9 MEQ/L (5-15); AST (GOT) 29 U/L (15-37); BLOOD UREA NITROGEN 59 MG/DL (7-18); GLOMERULAR FILTRATION RATE 36 ML/MIN (>89); TOTAL BILIRUBIN ADULT 0.4 MG/DL (0.2-1.0)
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
[2017-01-22] MEDS ORDERED: POTASSIUM CHLORIDE 20 MEQ CONTROLLED RELEASE TAB PO ONE (08:30)
[2017-01-22] MEDS ORDERED: FERROUS FUMARATE 27 MG PO SCH (09:00)
[2017-01-22] MEDS ORDERED: FUROSEMIDE 40 MG TAB PO SCH (09:00)
[2017-01-22] MEDS ORDERED: RANITIDINE 75 MG PO SCH (09:00)
[2017-01-22] MEDS: NS + KCL 20 MEQ INJ 1,000 ML IV SCH (09:47)
[2017-01-22] MEDS: MULTIVITAMINS/MINERALS THERAPEUTIC TAB PO SCH (09:47)
[2017-01-22] MEDS: FAMOTIDINE 20 MG TAB PO SCH ×2 (09:49→21:48)
[2017-01-22] MEDS: CARBIDOPA/LEVODOPA 25 MG/100 MG TAB PO SCH ×3 (09:49→18:27)
[2017-01-22] MEDS: SODIUM CHLORIDE 0.9% FLUSH 10 ML FLUSH IV FLUSH SCH ×2 (09:52→21:48)
--- NOTE | 2017-01-22 13:31 | EKG ---
Date Performed: 01/21/2017 Time Performed: 21:02:04 PTAGE: 86 years EKG: Atrial fibrillation with rapid ventricular response. Left anterior fascicular block Septal and lateral ST-T changes are nonspecific Abnormal ECG Compared to prior tracing no significant change PREVIOUS TRACING : 11/21/2016 07.57 DOCTOR: Alden Melchor Interpretating Date/Time 01/22/2017 13:30:33
[2017-01-22] MEDS ORDERED: WARFARIN SOD 7.5 MG TAB PO SCH (16:00)
[2017-01-22] MEDS: ATORVASTATIN 10 MG TAB PO SCH (21:48)
[2017-01-23] VITALS (26 sets, daily range): BP systolic 73–160; BP diastolic 45–70; PULSE 52–62; RESP 11–31; TEMP 97.9–98.5; O2SAT 94–100
[2017-01-23] MEDS: NS + KCL 20 MEQ INJ 1,000 ML IV SCH ×2 (00:31→13:38)
[2017-01-23] MEDS: DILTIAZEM HCL 30 MG TAB PO SCH ×4 (00:31→16:14)
[2017-01-23 06:36] LABS: AUTOMATED NEUTROPHIL # 4.3 TH/MM3 (1.8-7.7); BASOPHIL % 0.3 % (0.0-2.0); EOSINOPHIL # 0.1 TH/MM3 (0-0.4); EOSINOPHIL % 1.9 % (0.0-4.0); HEMATOCRIT 31.7 % (39.0-51.0); HEMO FLAGS DIFF FINAL; LYMPH % 10.7 % (9.0-44.0); LYMPHOCYTE # 0.6 TH/MM3 (1.0-4.8); MEAN CELL VOLUME 87.4 FL (80.0-100.0); MEAN CORPUSCULAR HEMOGLOBIN 29.5 PG (27.0-34.0); MEAN CORPUSCULAR HGB CONC 33.7 % (32.0-36.0); MONO % 10.8 % (0.0-8.0); NEUT % 76.3 % (16.0-70.0); PLATELET COUNT 244 TH/MM3 (150-450); RED BLOOD COUNT 3.63 MIL/MM3 (4.50-5.90); RED CELL DISTRIBUTION WIDTH 14.4 % (11.6-17.2); WHITE BLOOD COUNT 5.6 TH/MM3 (4.0-11.0)
[2017-01-23 07:01] LABS: BICARBONATE 24.5 MEQ/L (21.0-32.0); POTASSIUM 4.3 MEQ/L (3.5-5.1)
[2017-01-23] MEDS: CARBIDOPA/LEVODOPA 25 MG/100 MG TAB PO SCH ×3 (09:03→16:14)
[2017-01-23] MEDS: MULTIVITAMINS/MINERALS THERAPEUTIC TAB PO SCH (09:03)
[2017-01-23] MEDS: FAMOTIDINE 20 MG TAB PO SCH ×2 (09:03→21:02)
[2017-01-23] MEDS: SODIUM CHLORIDE 0.9% FLUSH 10 ML FLUSH IV FLUSH SCH ×2 (09:04→21:04)
--- NOTE | 2017-01-23 12:03 | HHI.PR ---
Subjective Remarks Follow-up for rotavirus infection, DARA, A.Fib. Patient denies any diarrhea. 551 mL of stool output documented over the last 24 hours. Objective Vitals Vital Signs Date Time Temp Pulse Resp B/P Pulse Ox O2 Delivery O2 Flow Rate FiO2 01/23/17 11:00 54 15 116/61 99 01/23/17 10:00 60 25 73/49 98 01/23/17 09:00 60 17 104/52 97 01/23/17 08:00 54 12 108/59 97 01/23/17 07:00 56 12 108/60 97 01/23/17 06:00 62 25 107/52 96 01/23/17 05:00 56 19 113/58 96 01/23/17 04:05 98.5 60 29 107/58 94 01/23/17 03:01 60 16 112/45 96 01/23/17 02:02 56 11 103/53 98 01/23/17 02:01 58 15 109/49 98 01/23/17 01:01 60 13 104/54 95 01/23/17 00:00 98.1 58 18 110/58 96 01/22/17 23:01 58 12 112/56 99 01/22/17 22:01 58 16 104/60 98 01/22/17 22:00 60 01/22/17 21:01 58 14 108/58 97 01/22/17 20:01 98.5 60 27 111/58 100 01/22/17 20:00 60 01/22/17 19:12 58 14 107/63 99 01/22/17 18:00 62 19 99 01/22/17 17:04 60 20 107/56 96 01/22/17 17:00 60 17 96 01/22/17 16:00 62 35 112/66 94 01/22/17 15:00 64 25 117/61 94 01/22/17 14:00 98.0 62 15 114/64 94 01/22/17 13:00 62 15 94 I/O 01/22/17 01/22/17 01/22/17 01/23/17 01/23/17 01/23/17 07:00 15:00 23:00 07:00 15:00 23:00 Intake Total 1039 ml 644 ml Output Total 1300 ml 300 ml 51 ml Balance -1300 ml 739 ml 593 ml Intake Oral 220 ml 200 ml IV Total 819 ml 444 ml Output Urine Total 750 ml 300 ml 50 ml Stool Total 550 ml 1 ml # Voids 2 # Bowel Movements 2 Result Diagram: 01/23/1760001/23/17600 Objective Remarks GENERAL: Elderly patient in no apparent distress sitting in recliner. SKIN: Warm and dry. HEAD: Atraumatic. Normocephalic. CARDIOVASCULAR: Normal rate 60 bpm with regular rhythm. RESPIRATORY: No accessory muscle use. Clear to auscultation. Breath sounds equal bilaterally. GASTROINTESTINAL: Abdomen soft, non-tender, nondistended. MUSCULOSKELETAL: No lower extremity edema. NEUROLOGICAL: Awake and alert. Quiet speech. Urinary Catheter: No Vascular Central Line Catheter: No A/P Problem List: (1) Rotavirus infection ICD Code: A08.0 Status: Acute (2) Hypokalemia ICD Code: E87.6 Status: Acute (3) Dehydration ICD Code: E86.0 Status: Acute (4) Acute renal failure superimposed on stage 3 chronic kidney disease ICD Code: N17.9 Status: Acute (5) Atrial fibrillation with rapid ventricular response ICD Code: I48.91 Status: Resolved Assessment and Plan 86-year-old male with: Rotavirus infection: Patient with diarrhea starting night. Stool positive for rotavirus infection. C. difficile negative. WBC count normal. Patient received 1 L bolus of normal saline followed by NS+ 40 KCl and regular NS at 100 mL/hr all of which were discontinued last night. Patient hypotensive , but MAP is intact. -Continue IVF. Switch NS + KCl to 1/2 NS as Cl is elevated at 113 and K+ has been repleted. Hypokalemia: Attributed to diarrhea. K+ 3.1-->4.3 s/p repletion. -Monitor BMP DARA superimposed on Stage 3 CKD/dehydration: BUN/Cr 64/2.4 improved to 44/1.40 with IV hydration; around patient's baseline. -Decrease rate of IVF to 50 mL/hr as renal function has improved; caution exercised as patient has h/o CHF -Repeat am BMP -Avoid nephrotoxins. Hold home Lasix, metolazone, and Losartan. A.Fib RVR: Resolved. History of A. fib on Coumadin. Heart rate 121 on arrival likely attributed to acute dehydration. Now within normal rate and rhythm. -Oral Cardizem was initially held due to hypotension but resumed yesterday morning at 30 mg q 6 hours. BP was 73/49 at 1000 following 6 am dose today. 2nd dose was held today and patient's BP improved to 136/65. HR is in the 50's-60. Continue to monitor HR and BP with Cardizem use. Hold if SBP <100. -Continue Coumadin. Pharmacy to monitor INR and dose appropriately. INR 3.2 today. Parkinson's: Continue home medication. -PT following Continue other home medications unless otherwise indicated. DVT prevention: SCDs, on coumadin Written by Viola Guillaume PA-C acting as scribe for Dr. Vazquez on 01/23/17 at 1115. This note was transcribed by scribe Viola Guillaume PA-C. I, Dr. Neil Vazquez personally performed the history, physical exam, and medical decision making; and confirmed the accuracy of the information in the transcribed note. Authenticated by Dr. Neil Vazquez on 01/24/17 at 07:19. Viola Guillaume Jan 23, 2017 12:03 Neil Vazquez MD Jan 24, 2017 07:20
[2017-01-23] MEDS ORDERED: SODIUM CHLOR 0.45% 1000 ML INJ 1,000 ML IV SCH (15:00)
[2017-01-23] MEDS ORDERED: WARFARIN SOD 7.5 MG TAB PO SCH (16:00)
[2017-01-23] MEDS: ATORVASTATIN 10 MG TAB PO SCH (21:03)
[2017-01-24] VITALS: BP 144/67; PULSE 60; RESP 13; O2SAT 100
[2017-01-24 04:00] VITALS: BP 131/59; PULSE 68; RESP 16; TEMP 97.5
[2017-01-24] MEDS: DILTIAZEM HCL 30 MG TAB PO SCH ×5 (06:00→23:56)
[2017-01-24 06:35] LABS: BICARBONATE 21.4 MEQ/L (21.0-32.0); POTASSIUM 3.3 MEQ/L (3.5-5.1)
[2017-01-24] MEDS ORDERED: POTASSIUM CHLORIDE 20 MEQ CONTROLLED RELEASE TAB PO ONE (07:45)
[2017-01-24 08:00] VITALS: BP 126/66; PULSE 58; PULSE 68; RESP 24; TEMP 97.5
[2017-01-24] MEDS: FAMOTIDINE 20 MG TAB PO SCH ×2 (08:06→19:51)
[2017-01-24] MEDS: MULTIVITAMINS/MINERALS THERAPEUTIC TAB PO SCH (08:07)
[2017-01-24] MEDS: SODIUM CHLORIDE 0.9% FLUSH 10 ML FLUSH IV FLUSH SCH ×2 (08:07→19:52)
[2017-01-24] MEDS: CARBIDOPA/LEVODOPA 25 MG/100 MG TAB PO SCH ×3 (08:07→18:00)
--- NOTE | 2017-01-24 08:53 | HHI.PR ---
Subjective Remarks Follow-up for rotavirus infection, DARA, A.Fib. Patient has a rectal tube and is putting out a significant amount of diarrhea, complete water. Objective Vitals Vital Signs Date Time Temp Pulse Resp B/P Pulse Ox O2 Delivery O2 Flow Rate FiO2 01/24/17 08:00 97.5 58 24 126/66 01/24/17 08:00 68 01/24/17 04:00 97.5 68 16 131/59 01/24/17 00:00 60 13 144/67 100 01/23/17 21:00 60 29 119/58 01/23/17 20:00 56 28 121/65 100 01/23/17 20:00 57 01/23/17 19:00 97.9 60 31 123/70 98 01/23/17 18:00 56 17 135/64 99 01/23/17 18:00 59 01/23/17 17:02 62 14 145/69 100 01/23/17 16:20 98.3 58 13 132/67 97 01/23/17 16:18 160/68 98 01/23/17 16:01 58 12 116/69 100 01/23/17 16:00 55 01/23/17 16:00 58 15 99 01/23/17 15:00 52 11 139/64 98 01/23/17 14:00 55 01/23/17 14:00 98.2 54 11 119/53 01/23/17 13:00 54 15 136/65 01/23/17 12:00 54 15 120/54 100 01/23/17 12:00 53 01/23/17 11:00 54 15 116/61 99 01/23/17 10:00 60 25 73/49 98 01/23/17 09:00 60 17 104/52 97 I/O 01/23/17 01/23/17 01/23/17 01/24/17 01/24/17 01/24/17 07:00 15:00 23:00 07:00 15:00 23:00 Intake Total 644 ml 1196 ml 890 ml 300 ml Output Total 51 ml 1 ml 2 ml Balance 593 ml 1195 ml 888 ml 300 ml Intake Oral 200 ml 640 ml 240 ml IV Total 444 ml 556 ml 650 ml 300 ml Output Urine Total 50 ml Stool Total 1 ml 1 ml 2 ml # Voids 2 3 2 2 # Bowel Movements 3 Result Diagram: 01/23/17 0601 01/24/17 0500 Objective Remarks GENERAL: Elderly patient in no apparent distress. SKIN: Warm and dry. HEAD: Atraumatic. Normocephalic. CARDIOVASCULAR: Normal rate and regular rhythm. RESPIRATORY: No accessory muscle use. Clear to auscultation. Breath sounds equal bilaterally. GASTROINTESTINAL: Abdomen soft, non-tender, nondistended. NEUROLOGICAL: Awake and alert. Quiet speech. Urinary Catheter: No Vascular Central Line Catheter: No A/P Problem List: (1) Rotavirus infection ICD Code: A08.0 Status: Acute (2) Hypokalemia ICD Code: E87.6 Status: Acute (3) Dehydration ICD Code: E86.0 Status: Acute (4) Acute renal failure superimposed on stage 3 chronic kidney disease ICD Code: N17.9 Status: Acute (5) Atrial fibrillation with rapid ventricular response ICD Code: I48.91 Status: Resolved Assessment and Plan 86-year-old male with: Rotavirus infection: Patient with diarrhea starting night. Stool positive for rotavirus infection. C. difficile negative. WBC count normal. Patient received 1 L bolus of normal saline followed by NS+ 40 KCl and regular NS at 100 mL/hr all of which were discontinued. Hypotension has resolved. -Diarrhea persists. Rectal tube in place. Continue IVF, 1/2 NS + KCl. -Repeat am CBC. Hypokalemia: Attributed to diarrhea. 3.3 again this morning. -20 mEq po KCl ordered. Potassium added back to IVF. -Repeat am BMP, Mg level. DARA superimposed on Stage 3 CKD/dehydration: Improved. BUN/Cr 64/2.4 --> 32/ 1.20 with IV hydration; better than patient's baseline. -Continue IVF at low rate as diarrhea persists; caution exercised as patient has h/o CHF -Monitor BMP -Avoid nephrotoxins. Hold home Lasix, metolazone, and Losartan. A.Fib RVR: Resolved. History of A. fib on Coumadin. Heart rate 121 on arrival likely attributed to acute dehydration. Now within normal rate and rhythm. -Continue Cardizem with hold parameters. -Continue Coumadin. Pharmacy to monitor INR and dose appropriately. INR 3.2 today. Parkinson's: Continue home medication. -PT following Continue other home medications unless otherwise indicated. DVT prevention: SCDs, on coumadin Written by Viola Guillaume PA-C acting as scribe for Dr. Vazquez on 01/24/17 at 0815. This note was transcribed by scribe Viola Guillaume PA-C. I, Dr. Neil Vazquez personally performed the history, physical exam, and medical decision making; and confirmed the accuracy of the information in the transcribed note. Authenticated by Dr. Neil Vazquez on 01/24/17 at 14:33. Viola Guillaume Jan 24, 2017 08:53 Neil Vazquez MD Jan 24, 2017 14:33
[2017-01-24] MEDS ORDERED: METOLAZONE 2.5 MG TAB PO SCH (09:00)
[2017-01-24] MEDS: 1/2 NS + KCL 20 MEQ INJ 1,000 ML IV SCH ×2 (10:00→19:50)
[2017-01-24 10:49] LABS: BLOOD, URINE TRACE (NEG); GLUCOSE,URINE NEG (NEG); KETONE, URINE NEG (NEG); NITRITE,URINE NEG (NEG); PH, URINE 5.5 (5.0-8.5)
[2017-01-24 11:23] LABS: METHOD OF COLLECTION VOIDED; URINE COLOR STRAW (YELLW/STRAW)
[2017-01-24 11:26] LABS: COMMENT (UR) CULT NOT INDICATED; CULTURE IF INDICATED CULT NOT INDICATED; SQUAMOUS EPITHELIAL CELL URINE 0-5 /hpf (0-5); WBC, URINE 0-2 /hpf (0-5)
[2017-01-24 12:00] VITALS: BP 135/68; PULSE 75; RESP 26; TEMP 98.3
[2017-01-24 16:00] VITALS: BP 109/54; PULSE 68; RESP 26; TEMP 98
[2017-01-24] MEDS: ATORVASTATIN 10 MG TAB PO SCH (19:50)
[2017-01-24] MEDS: HALOPERIDOL LACTATE 5 MG/ML AMP IM PRN (19:50)
[2017-01-24 20:00] VITALS: BP 153/70; PULSE 68; PULSE 78; RESP 22; TEMP 97; O2SAT 95
[2017-01-25] VITALS: BP 142/63; PULSE 68; RESP 14; TEMP 97.6; O2SAT 95
[2017-01-25 04:00] VITALS: BP 140/68; PULSE 62; RESP 12; TEMP 97.5; O2SAT 95
[2017-01-25 04:57] LABS: AUTOMATED NEUTROPHIL # 3.9 TH/MM3 (1.8-7.7); BASOPHIL % 0.2 % (0.0-2.0); EOSINOPHIL # 0.1 TH/MM3 (0-0.4); EOSINOPHIL % 1.1 % (0.0-4.0); HEMO FLAGS DIFF FINAL; LYMPH % 16.5 % (9.0-44.0); LYMPHOCYTE # 0.9 TH/MM3 (1.0-4.8); MEAN CELL VOLUME 86.1 FL (80.0-100.0); MEAN CORPUSCULAR HEMOGLOBIN 28.6 PG (27.0-34.0); MEAN CORPUSCULAR HGB CONC 33.2 % (32.0-36.0); MONO % 12.4 % (0.0-8.0); NEUT % 69.8 % (16.0-70.0); PLATELET COUNT 268 TH/MM3 (150-450); RED BLOOD COUNT 3.94 MIL/MM3 (4.50-5.90); RED CELL DISTRIBUTION WIDTH 14.3 % (11.6-17.2); WHITE BLOOD COUNT 5.6 TH/MM3 (4.0-11.0)
[2017-01-25 05:01] LABS: POTASSIUM 3.8 MEQ/L (3.5-5.1)
[2017-01-25] MEDS: DILTIAZEM HCL 30 MG TAB PO SCH ×4 (05:03→23:06)
[2017-01-25] MEDS: HALOPERIDOL LACTATE 5 MG/ML AMP IM PRN (05:03)
[2017-01-25 05:04] LABS: MAGNESIUM 2.1 MG/DL (1.5-2.5)
[2017-01-25 08:00] VITALS: PULSE 62; RESP 10; TEMP 97.7
[2017-01-25 09:36] LABS: PROTHROMBIN TIME - PATIENT 22.7 SEC (9.8-11.6)
[2017-01-25] MEDS: MULTIVITAMINS/MINERALS THERAPEUTIC TAB PO SCH (11:11)
[2017-01-25] MEDS: CARBIDOPA/LEVODOPA 25 MG/100 MG TAB PO SCH ×3 (11:11→17:46)
[2017-01-25] MEDS: FAMOTIDINE 20 MG TAB PO SCH ×2 (11:11→19:24)
[2017-01-25] MEDS: SODIUM CHLORIDE 0.9% FLUSH 10 ML FLUSH IV FLUSH SCH ×2 (11:12→19:25)
--- NOTE | 2017-01-25 11:57 | HHI.PR ---
Subjective Remarks Follow-up diarrhea, hypokalemia, acute kidney injury. The patient was agitated overnight. He required soft limb restraints as well as Haldol. This morning he is much more calm. He is alert and answers questions. He denies pain. Objective Vitals Vital Signs Date Time Temp Pulse Resp B/P Pulse Ox O2 Delivery O2 Flow Rate FiO2 01/25/17 08:00 97.7 62 10 01/25/17 08:00 62 01/25/17 04:00 97.5 62 12 140/68 95 01/25/17 00:00 97.6 68 14 142/63 95 01/24/17 20:00 97.0 78 22 153/70 95 01/24/17 20:00 68 01/24/17 16:00 98.0 68 26 109/54 01/24/17 12:00 98.3 75 26 135/68 I/O 01/24/17 01/24/17 01/24/17 01/25/17 01/25/17 01/25/17 07:00 15:00 23:00 07:00 15:00 23:00 Intake Total 300 ml 500 ml 633 ml 380 ml Output Total 675 ml 500 ml 600 ml Balance 300 ml -175 ml 133 ml -220 ml Intake Oral 200 ml IV Total 300 ml 300 ml 633 ml 380 ml Output Urine Total 175 ml 500 ml 600 ml Stool Total 500 ml # Voids 2 2 # Bowel Movements 3 Result Diagram: 01/25/17 0433 01/25/17 043 Objective Remarks General: Elderly male in no acute distress. Heart: Regular rate and rhythm. No murmur. Lungs: Clear to auscultation bilaterally. No wheezes, rales, or rhonchi. Breathing is nonlabored. Abdomen: Soft, nontender, nondistended. Extremities: No lower extremity edema. Psych: Alert, confused. Procedures None Urinary Catheter: No Vascular Central Line Catheter: No A/P Problem List: (1) Rotavirus infection ICD Code: A08.0 Status: Acute (2) Hypokalemia ICD Code: E87.6 Status: Acute (3) Dehydration ICD Code: E86.0 Status: Acute (4) Acute renal failure superimposed on stage 3 chronic kidney disease ICD Code: N17.9 Status: Acute (5) Atrial fibrillation with rapid ventricular response ICD Code: I48.91 Status: Resolved Assessment and Plan 1. Rotavirus infection: Patient has had diarrhea. This is improving. C. difficile negative. Patient has received IV fluids. 2. Hypokalemia: Secondary to diarrhea. 3. Acute kidney injury superimposed on chronic kidney disease stage III: Improved. Avoid nephrotoxins. Home dose Lasix, metolazone, losartan on hold. 4. Atrial fibrillation with RVR: Resolved. Rate now controlled. Continue Cardizem. Continue Coumadin. 5. Parkinson's: Continue home meds. Continue PT. 6. DVT prophylaxis: SCDs, Coumadin. Neil Vazquez MD Jan 25, 2017 11:57
[2017-01-25 12:00] VITALS: PULSE 74; RESP 12; TEMP 97.7
[2017-01-25 16:00] VITALS: BP 125/32; PULSE 70; RESP 16; TEMP 97.8
[2017-01-25] MEDS: WARFARIN SOD 7.5 MG TAB PO SCH (17:46)
[2017-01-25] MEDS: 1/2 NS + KCL 20 MEQ INJ 1,000 ML IV SCH (19:24)
[2017-01-25] MEDS: ATORVASTATIN 10 MG TAB PO SCH (19:24)
[2017-01-25 20:00] VITALS: BP 110/55; PULSE 58; RESP 13; TEMP 97.6
[2017-01-26] VITALS (9 sets, daily range): BP systolic 121–175; BP diastolic 62–78; PULSE 54–80; RESP 11–20; TEMP 96–98.2; O2SAT 95–98
[2017-01-26] MEDS: DILTIAZEM HCL 30 MG TAB PO SCH ×4 (05:57→23:37)
[2017-01-26 06:21] LABS: AUTOMATED NEUTROPHIL # 5.3 TH/MM3 (1.8-7.7); BASOPHIL % 0.7 % (0.0-2.0); EOSINOPHIL # 0.2 TH/MM3 (0-0.4); EOSINOPHIL % 2.6 % (0.0-4.0); HEMATOCRIT 32.2 % (39.0-51.0); LYMPH % 10.5 % (9.0-44.0); LYMPHOCYTE # 0.7 TH/MM3 (1.0-4.8); MEAN CELL VOLUME 86.9 FL (80.0-100.0); MEAN CORPUSCULAR HEMOGLOBIN 29.3 PG (27.0-34.0); MEAN CORPUSCULAR HGB CONC 33.7 % (32.0-36.0); MONO % 9.3 % (0.0-8.0); NEUT % 76.9 % (16.0-70.0); PLATELET COUNT 220 TH/MM3 (150-450); RED CELL DISTRIBUTION WIDTH 14.4 % (11.6-17.2); WHITE BLOOD COUNT 6.9 TH/MM3 (4.0-11.0)
[2017-01-26 06:31] LABS: BICARBONATE 24.6 MEQ/L (21.0-32.0)
[2017-01-26 06:32] LABS: HEMO FLAGS DIFF FINAL; INTERNATIONAL NORMALIZED RATIO 2.1 RATIO; PROTHROMBIN TIME - PATIENT 23.7 SEC (9.8-11.6)
--- NOTE | 2017-01-26 09:38 | HHI.PR ---
Subjective Remarks Follow-up diarrhea from rotavirus 01/26/17-patient seen and examined, diarrhea resolved since last night. Patient agitated and confused otherwise present. Vitals stable Objective Vitals Vital Signs Date Time Temp Pulse Resp B/P Pulse Ox O2 Delivery O2 Flow Rate FiO2 01/26/17 06:00 64 147/65 01/26/17 03:00 96.0 62 20 175/76 97 01/26/17 00:00 97.5 54 11 141/62 98 01/25/17 20:00 97.6 58 13 110/55 01/25/17 16:00 97.8 70 16 125/32 01/25/17 12:00 97.7 74 12 I/O 01/25/17 01/25/17 01/25/17 01/26/17 01/26/17 01/26/17 07:00 15:00 23:00 07:00 15:00 23:00 Intake Total 380 ml 780 ml 365 ml 420 ml Output Total 600 ml 600 ml 200 ml 550 ml Balance -220 ml 180 ml 165 ml -130 ml Intake Oral 300 ml 60 ml IV Total 380 ml 480 ml 365 ml 360 ml Output Urine Total 600 ml 600 ml 200 ml 550 ml Stool Total 0 ml # Voids 2 1 # Bowel Movements 0 Result Diagram: 01/26/1747 01/26/17 0547 Objective Remarks GENERAL: Confused, in no acute distress SKIN: Warm and dry. HEAD: Normocephalic. EYES: No scleral icterus. No injection or drainage. NECK: Supple, trachea midline. No JVD or lymphadenopathy. CARDIOVASCULAR: Regular rate and rhythm without murmurs, gallops, or rubs. RESPIRATORY: Breath sounds equal bilaterally. No accessory muscle use. GASTROINTESTINAL: Abdomen soft, non-tender, nondistended. MUSCULOSKELETAL: No cyanosis, or edema. BACK: Nontender without obvious deformity. No CVA tenderness. Procedures None A/P Problem List: (1) Rotavirus infection ICD Code: A08.0 Status: Acute (2) Hypokalemia ICD Code: E87.6 Status: Acute (3) Dehydration ICD Code: E86.0 Status: Acute (4) Acute renal failure superimposed on stage 3 chronic kidney disease ICD Code: N17.9 Status: Acute (5) Atrial fibrillation with rapid ventricular response ICD Code: I48.91 Status: Resolved Assessment and Plan 86-year-old man with 1. Rotavirus infection: C. difficile PCR negative, diarrhea improving. Continue with conservative treatment 2. Hypokalemia: Secondary to diarrhea. Resolved 3. Acute kidney injury superimposed on chronic kidney disease stage III: Improved/resolved. Avoid nephrotoxins. 4. Atrial fibrillation with RVR: Rate now controlled. Continue Cardizem. Continue Coumadin and monitor INR/PT. 5. Parkinson's: Continue home meds. Continue PT. 6. DVT prophylaxis: SCDs, Coumadin. 7. Hypertension: Resume losartan and metolazone and continue to hold Bradley Ash MD Jan 26, 2017 09:38
[2017-01-26] MEDS: FAMOTIDINE 20 MG TAB PO SCH ×2 (09:39→19:52)
[2017-01-26] MEDS: SODIUM CHLORIDE 0.9% FLUSH 10 ML FLUSH IV FLUSH SCH ×2 (09:39→19:12)
[2017-01-26] MEDS: MULTIVITAMINS/MINERALS THERAPEUTIC TAB PO SCH (09:40)
[2017-01-26] MEDS: CARBIDOPA/LEVODOPA 25 MG/100 MG TAB PO SCH ×3 (09:40→17:02)
[2017-01-26] MEDS: WARFARIN SOD 7.5 MG TAB PO SCH (17:02)
[2017-01-26] MEDS: ATORVASTATIN 10 MG TAB PO SCH (19:53)
[2017-01-26] MEDS: 1/2 NS + KCL 20 MEQ INJ 1,000 ML IV SCH (23:38)
[2017-01-27 00:27] VITALS: BP 161/71; PULSE 68; RESP 16; TEMP 97.1; O2SAT 98
[2017-01-27 04:00] VITALS: BP 155/70; PULSE 65; RESP 15; TEMP 96.9; O2SAT 97
[2017-01-27] MEDS: DILTIAZEM HCL 30 MG TAB PO SCH ×3 (06:06→17:59)
[2017-01-27 06:10] LABS: INTERNATIONAL NORMALIZED RATIO 2.2 RATIO
[2017-01-27 06:20] VITALS: PULSE 67
[2017-01-27 08:00] VITALS: BP 156/75; PULSE 67; RESP 18; TEMP 96.8; O2SAT 99
[2017-01-27] MEDS: SODIUM CHLORIDE 0.9% FLUSH 10 ML FLUSH IV FLUSH SCH (09:00)
[2017-01-27] MEDS: MULTIVITAMINS/MINERALS THERAPEUTIC TAB PO SCH (09:01)
[2017-01-27] MEDS: FAMOTIDINE 20 MG TAB PO SCH (09:01)
[2017-01-27] MEDS: CARBIDOPA/LEVODOPA 25 MG/100 MG TAB PO SCH ×3 (09:02→17:59)
[2017-01-27] MEDS ORDERED: DILT31TA PO (11:57)
[2017-01-27 12:00] VITALS: BP 127/69; PULSE 66; RESP 20; TEMP 97; O2SAT 100
--- NOTE | 2017-01-27 12:08 | HHI.PR ---
Subjective Remarks Follow-up diarrhea from rotavirus 01/26/17-patient seen and examined, diarrhea resolved since last night. Patient agitated and confused otherwise present. Vitals stable 01/27/17-patient seen and examined; no more diarrhea x 2 days. Stable Objective Vitals Vital Signs Date Time Temp Pulse Resp B/P Pulse Ox O2 Delivery O2 Flow Rate FiO2 01/27/17 08:00 96.8 67 18 156/75 99 01/27/17 06:20 67 01/27/17 04:00 96.9 65 15 155/70 97 01/27/17 00:27 97.1 68 16 161/71 98 01/26/17 20:38 96.9 62 19 121/62 98 01/26/17 20:07 59 01/26/17 16:00 98.2 60 16 121/63 95 01/26/17 12:51 97.3 80 18 140/78 95 I/O 01/26/17 01/26/17 01/26/17 01/27/17 01/27/17 01/27/17 07:00 15:00 23:00 07:00 15:00 23:00 Intake Total 420 ml 240 ml 240 ml 879 ml Output Total 550 ml 350 ml 600 ml Balance -130 ml 240 ml -110 ml 279 ml Intake Oral 60 ml 240 ml 240 ml 100 ml IV Total 360 ml 779 ml Output Urine Total 550 ml 350 ml 600 ml # Voids 1 # Bowel Movements 0 Result Diagram: 01/26/17 0547 01/26/17 0547 Objective Remarks GENERAL: NAD SKIN: Warm and dry. HEAD: Normocephalic. EYES: No scleral icterus. No injection or drainage. NECK: Supple, trachea midline. No JVD or lymphadenopathy. CARDIOVASCULAR: Regular rate and rhythm without murmurs, gallops, or rubs. RESPIRATORY: Breath sounds equal bilaterally. No accessory muscle use. GASTROINTESTINAL: Abdomen soft, non-tender, nondistended. MUSCULOSKELETAL: No cyanosis, or edema. BACK: Nontender without obvious deformity. No CVA tenderness. Procedures None A/P Problem List: (1) Rotavirus infection ICD Code: A08.0 Status: Acute (2) Hypokalemia ICD Code: E87.6 Status: Acute (3) Dehydration ICD Code: E86.0 Status: Acute (4) Acute renal failure superimposed on stage 3 chronic kidney disease ICD Code: N17.9 Status: Acute (5) Atrial fibrillation with rapid ventricular response ICD Code: I48.91 Status: Resolved Assessment and Plan 86-year-old man with 1. Rotavirus infection: C. difficile PCR negative, diarrhea resolved. Continue with conservative treatment 2. Hypokalemia: Secondary to diarrhea. Resolved 3. Acute kidney injury superimposed on chronic kidney disease stage III: Improved/resolved. Avoid nephrotoxins. 4. Atrial fibrillation with RVR: Rate now controlled. Continue Cardizem. Continue Coumadin and monitor INR/PT. 5. Parkinson's: Continue home meds. Continue PT. 6. DVT prophylaxis: SCDs, Coumadin. 7. Hypertension: continue losartan and metolazone and resume Bradley Ash MD Jan 27, 2017 12:08
--- NOTE | 2017-01-27 12:15 | HHI.DS ---
Discharge Summary Admission Date Jan 21, 2017 at 21:50 Discharge Date: Jan 27, 2017 Admitting Diagnosis DEHYDRATION, RAPID ATRIAL FIBRILLATION (1) Rotavirus infection ICD Code: A08.0 (2) Hypokalemia ICD Code: E87.6 (3) Dehydration ICD Code: E86.0 (4) Acute renal failure superimposed on stage 3 chronic kidney disease ICD Code: N17.9 (5) Atrial fibrillation with rapid ventricular response ICD Code: I48.91 Procedures None Brief History - From Admission 86-year-old male with history of Parkinson's disease, A. fib on Coumadin, CVA, pulmonary embolus, hypertension, diastolic CHF, chronic kidney disease, and sleep apnea is admitted for diarrhea and dehydration as well as rapid A. fib. Due to Parkinson's disease, the patient is not able to provide an accurate history. When asked why he is here he states "prostate problems". He denies any chest pain or shortness of breath. Denies any nausea or vomiting. Denies any diarrhea. Denies any pain. Daughter Eulalia Shaw was contacted and assisted with history. She was with the patient in the ED last night, has been residing at [facility] since September.. She states the patient resides at an [facility]. She states on night she had taken him out and then had brought him back to the facility and he started having diarrhea that night which continued overnight. She states he normally eats and drinks well but was not drinking fluids. She states that she did hold his Lasix and stool softener due to the diarrhea. She does state there was another woman in the facility who was holding her stomach, possible sick contact. Patient has not been on any recent antibiotics. Patient has baseline dementia. He normally ambulates with a walker. CBC/BMP: 01/26/17 0547 01/26/17 0547 Significant Findings Laboratory Tests Test 01/25/17 01/25/17 01/26/17 01/27/17 04:33 09:00 05:47 05:15 Red Blood Count 3.94 MIL/MM3 3.70 MIL/MM3 (4.50-5.90) (4.50-5.90) Hemoglobin 11.3 GM/DL 10.9 GM/DL (13.0-17.0) (13.0-17.0) Hematocrit 34.0 % 32.2 % (39.0-51.0) (39.0-51.0) Mean Platelet Volume 6.9 FL 6.9 FL (7.0-11.0) (7.0-11.0) Monocytes (%) (Auto) 12.4 % 9.3 % (0.0-8.0) (0.0-8.0) Lymphocytes # (Auto) 0.9 TH/MM3 0.7 TH/MM3 (1.0-4.8) (1.0-4.8) Chloride Level 110 MEQ/L (98-107) Blood Urea Nitrogen 24 MG/DL (7-18) 24 MG/DL (7-18) Estimat Glomerular Filtration 57 ML/MIN (>89) 63 ML/MIN (>89) Rate Calcium Level 7.8 MG/DL 7.7 MG/DL (8.5-10.1) (8.5-10.1) Prothrombin Time 22.7 SEC 23.7 SEC 25.0 SEC (9.8-11.6) (9.8-11.6) (9.8-11.6) Neutrophils (%) (Auto) 76.9 % (16.0-70.0) PE at Discharge GENERAL: NAD SKIN: Warm and dry. HEAD: Normocephalic. EYES: No scleral icterus. No injection or drainage. NECK: Supple, trachea midline. No JVD or lymphadenopathy. CARDIOVASCULAR: Regular rate and rhythm without murmurs, gallops, or rubs. RESPIRATORY: Breath sounds equal bilaterally. No accessory muscle use. GASTROINTESTINAL: Abdomen soft, non-tender, nondistended. MUSCULOSKELETAL: No cyanosis, or edema. BACK: Nontender without obvious deformity. No CVA tenderness. Hospital Course 1. Rotavirus infection: He was treated conservatively with IV fluid hydration with improvement of diarrheal symptoms. C. difficile PCR was negative. Pain to atrial fibrillation with RVR patient medication was switched to Cardizem 30 mg 4 times a day the and continue on Coumadin with monitoring of INR PT. All electrolyte abnormalities were corrected accordingly. Enough function improved with IV fluid hydrations and oral anti-hypertensive medications were resumed. PT was consulted. Patient was continued on his chronic medical condition of Parkinson's. Pt Condition on Discharge: Stable Discharge Disposition: Discharge to SNF Discharge Time: > 30 minutes Discharge Instructions DIET: Follow Instructions for: Heart Healthy Diet Activities you can perform: Regular-No Restrictions Follow up Referrals: PCP Follow-up - 2-3 Days New Orders: PT/INR - 2-3 Days New Medications: Diltiazem (Cardizem) 30 Mg Tab 30 MG PO Q6HR Blood Pressure Management #120 TAB Continued Medications: Atorvastatin (Lipitor) 10 Mg Tab 10 MG PO HS Cholesterol Management #30 Ref 0 TAB Carbidopa-Levodopa (Carbidopa-Levodopa) 25-100 Mg Tab 4 TAB PO TID Parkinson Disease Mgmt #90 Ref 0 TAB Cholecalciferol (Vitamin D3) 2,000 Unit Chew 1000 UNITS CHEW DAILY #1 BOTTLE Ferrous Fumarate (Iron) 18 Mg Tab 27 MG PO DAILY Nutritional Supplement Ref 0 TAB Furosemide (Furosemide) 40 Mg Tab 40 MG PO DAILY #30 Ref 0 TAB Metolazone (Metolazone) 2.5 Mg Tab 2.5 MG PO MoWeFr #30 Ref 0 TAB Multiple Vitamins W/ Minerals (Multivitamin Men) 1 Tab Tab 1 TAB PO DAILY Nutritional Supplement Ref 0 TAB Potassium Chloride ER (Potassium Chloride ER) 10 Meq Tab 10 MEQ PO BID Electrolyte Replacement #60 Ref 0 TAB Ranitidine (Zantac 75) 75 Mg Tab 75 MG PO DAILY Take 30 to 60 minutes before eating food or drinking beverages that cause heartburn. Heartburn Ref 0 TAB Warfarin (Warfarin) 7.5 Mg Tab 7.5 MG PO Tue Sun Blood Clot Prevention #30 Ref 0 TAB Discontinued Medications: Diltiazem ER 24 HR (Cartia Xt) 120 Mg Caper 120 MG PO DAILY #30 Ref 0 CAP Additional Information Please check INR/PT Q2-3 days Bradley Tovar MD Jan 27, 2017 12:15
[2017-01-27 16:00] VITALS: BP 152/75; PULSE 65; RESP 18; TEMP 96.9; O2SAT 97
[2017-01-27] MEDS ORDERED: COUM7.5T PO (17:57)
[2017-01-27] MEDS ORDERED: WARFARIN SOD 7.5 MG TAB PO SCH (18:00)
== END 2017-01-27 18:31 | DRG 392 ==
LOC: PHED 20:03 → PHEDA 21:50 → PHICU 01-22 00:06 → PH3B 01-26 02:57
PROVIDERS: ADMIT Hospitalist; ATTEND Hospitalist
DX: A08.0 Rotaviral enteritis (principal); N17.9 Acute kidney failure, unspecified; I13.0 Hypertensive heart and chronic kidney disease with heart failure and stage 1 through stage 4 chronic kidney disease, or unspecified chronic kidney disease; I95.9 Hypotension, unspecified; G20 Parkinson's disease; I50.32 Chronic diastolic (congestive) heart failure; F03.90 Unspecified dementia, unspecified severity, without behavioral disturbance, psychotic disturbance, mood disturbance, and anxiety; E86.0 Dehydration; N18.3 Chronic kidney disease, stage 3 (moderate); H35.30 Unspecified macular degeneration; I48.0 Paroxysmal atrial fibrillation; G47.30 Sleep apnea, unspecified; I25.10 Atherosclerotic heart disease of native coronary artery without angina pectoris; E87.6 Hypokalemia; Z79.01 Long term (current) use of anticoagulants; Z90.49 Acquired absence of other specified parts of digestive tract; Z96.641 Presence of right artificial hip joint; Z86.711 Personal history of pulmonary embolism; Z87.442 Personal history of urinary calculi; Z87.891 Personal history of nicotine dependence; Z86.73 Personal history of transient ischemic attack (TIA), and cerebral infarction without residual deficits
CPT/HCPCS: 36415; 80048; 80053; 81001; 83735; 84484; 85025; 85610; 85730; 87425; 87493; 87506; 93005; 96360; J1630; J3480; J7030

== ENCOUNTER 2017-03-11 17:59 | Observation (INO) | payer MEDICARE ==
[2017-03-11] VITALS (7 sets, daily range): BP systolic 109–140; BP diastolic 50–73; PULSE 59–66; RESP 16–20; TEMP 96–98.5; O2SAT 96–100
[~2017-03-11] VITALS: Ht 177.8 cm; Wt 68.3 kg
[~2017-03-11 17:59] MED LIST changes: -CART240C PO; -COUM5TAB PO; +COUM7.5T PO; +DILT31TA PO; -WARF-21 PO
[2017-03-11] MEDS ORDERED: CART120C PO (18:16)
[2017-03-11] MEDS ORDERED: COLA100C PO (18:16)
[2017-03-11] MEDS ORDERED: COUM5TAB PO (18:16)
[2017-03-11] MEDS ORDERED: WARF-21 PO (18:19)
[2017-03-11] MEDS ORDERED: FERR240T PO (18:19)
[2017-03-11] MEDS ORDERED: RANI150C PO (18:21)
[2017-03-11] MEDS ORDERED: OMEP20TA PO (18:21)
[2017-03-11] MEDS ORDERED: MULT1TAB46 PO (18:21)
[2017-03-11] MEDS ORDERED: SODIUM CHLOR 0.9% 1000 ML INJ 1,000 ML IV SCH (18:23)
[2017-03-11] MEDS ORDERED: SODIUM CHLORIDE 0.9% FLUSH 5 ML FLUSH IV FLUSH PRN (18:30)
--- NOTE | 2017-03-11 18:36 | PD ---
HPI Chief Complaint: Altered Mental Status Time Seen by Provider: 18:12 Travel History International Travel<30 days: No Contact w/Intl Traveler<30days: No Traveled to known affect area: No History of Present Illness HPI 86-year-old male with history of Parkinson's disease, A. fib on Coumadin, left heel decubitus ulcer, admission in January for diarrhea/dehydration/A. fib with RVR, brought in by her daughter from the patient's [facility] for evaluation of change in mental status/confusion. Patient did not come down for his meals today which is very unusual for him. Daughter states that he is not acting like himself. She is concerned about possible infection around the left heel decubitus ulcer or a UTI. Patient is denying any physical complaints. He is denying chest pain or dyspnea. No abdominal pain. He has not had vomiting or diarrhea. PFSH Past Medical History Hx Anticoagulant Therapy: Yes (COUMADIN) Anemia: Yes Arthritis: Yes Asthma: No Atrial Fibrillation: Yes Autoimmune Disease: No Blood Disorders: No Anxiety: No Depression: No Heart Rhythm Problems: Yes (afib ) Cancer: No Cardiovascular Problems: Yes (A-FIB) High Cholesterol: Yes Chemotherapy: No Chest Pain: No Congestive Heart Failure: No Cerebrovascular Accident: Yes (2014) Coronary Artery Disease: Yes Diabetes: No Diminished Hearing: Yes Endocrine: No Gastrointestinal Disorders: No GERD: No Gout: Yes Genitourinary: No Hiatal Hernia: No Hypertension: Yes Immune Disorder: No Implanted Vascular Access Dvce: Yes Kidney Stones: No Musculoskeletal: Yes Neurologic: Yes (parkinsons ) Parkinson's Disease: Yes Psychiatric: No Reproductive: No Respiratory: No Migraines: No Radiation Therapy: No Renal Failure: Yes Seizures: No Sickle Cell Disease: No Sleep Apnea: Yes (CPAP AT NIGHT) Ulcer: No ?: Not Past Surgical History AICD: No Appendectomy: Yes Arteriovenous Shunt: No Body Medical Devices: RT HIP REPLACEMENT Cholecystectomy: Yes Eye Surgery: Yes (CATARACTS) Insulin Pump: No Joint Replacement: Yes (HIP) Pacemaker: No Other Surgery: Yes Social History Alcohol Use: No Tobacco Use: No Substance Use: No Allergies-Medications (Allergen,Severity, Reaction): Coded Allergies: No Known Allergies (Unverified , 03/11/17) Reported Meds & Prescriptions Reported Meds & Active Scripts Active Losartan (Losartan Potassium) 50 Mg Tab 25 Mg PO TUTH Reported Ranitidine (Ranitidine HCl) 150 Mg Cap 75 Mg PO DAILY Multi Vitamin Daily (Multiple Vitamin) 1 Tab Tab 1 Tab PO DAILY Omeprazole 20 Mg Tab 20 Mg PO DAILY Ferrous Gluconate 240 Mg Tab 240 Mg PO DAILY Warfarin 7.5 Mg Tab 7.5 Mg PO EVERY OTHER DAY Cartia Xt (Diltiazem ER 24 HR) 120 Mg Caper 240 Mg PO HS Colace (Docusate Sodium) 100 Mg Capsule 100 Mg PO DAILY Coumadin (Warfarin) 5 Mg Tab 5 Mg PO EVERY OTHER DAY Potassium Chloride ER (Potassium Chloride) 10 Meq Tab 10 Meq PO BID Carbidopa-Levodopa 25-100 Mg Tab 4 Tab PO TID Lipitor (Atorvastatin Calcium) 10 Mg Tab 10 Mg PO HS Metolazone 2.5 Mg Tab 2.5 Mg PO MOWEFR Furosemide 40 Mg Tab 40 Mg PO DAILY Review of Systems Except as stated in HPI: all other systems reviewed are Neg Physical Exam Narrative GENERAL: Well-developed, well-nourished, awake, alert, resting tremors in upper extremities. SKIN: Focused skin assessment warm/dry. Left posterior heel with healing decubitus ulcer with granulation tissue. No warmth or erythema. No purulent drainage. HEAD: Atraumatic. Normocephalic. EYES: Pupils equal and round. No scleral icterus. No injection or drainage. ENT: Mucous membranes pink and moist. Edentulous. Lower gingiva with whitish/ superficial ulceration. NECK: Trachea midline. No JVD. No nuchal rigidity. CARDIOVASCULAR: Regular rate and rhythm. Distal pulses brisk and equal bilaterally. RESPIRATORY: No accessory muscle use. Clear to auscultation. Breath sounds equal bilaterally. GASTROINTESTINAL: Abdomen soft, nondistended. Left lower quadrant tenderness without peritoneal signs. Rest of abdomen is soft and nontender. No hernias. No masses. Normal bowel sounds. MUSCULOSKELETAL: No obvious deformities. No clubbing. No cyanosis. No edema. NEUROLOGICAL: Awake and alert. No obvious cranial nerve deficits. Resting tremor in upper extremities. Normal muscle strength in all 4 extremities. PSYCHIATRIC: Appropriate mood and affect; insight and judgment normal. Data Data Last Documented VS Vital Signs Date Time Temp Pulse Resp B/P Pulse Ox O2 Delivery O2 Flow Rate FiO2 03/11/17 19:43 98.5 03/11/17 19:15 59 16 113/68 100 Room Air Orders Electrocardiogram (03/11/17 18:23) Ammonia (03/11/17 18:23) Complete Blood Count With Diff (03/11/17 18:23) Comprehensive Metabolic Panel (03/11/17 18:23) Prothrombin Time / Inr (Pt) (03/11/17 18:23) Act Partial Throm Time (Ptt) (03/11/17 18:23) Thyroid Stimulating Hormone (03/11/17 18:23) Urinalysis - C+S If Indicated (03/11/17 18:23) Chest, Single Ap (03/11/17 18:23) Ct Brain W/O Iv Contrast(Rout) (03/11/17 18:23) Blood Glucose (03/11/17 18:23) Ecg Monitoring (03/11/17 18:23) Iv Access Insert/Monitor (03/11/17 18:23) Oximetry (03/11/17 18:23) Sodium Chloride 0.9% Flush (Ns Flush) (03/11/17 18:30) Sodium Chlor 0.9% 1000 Ml Inj (Ns 1000 M (03/11/17 18:23) Ct Abd/Pel W/O Iv Contrast (03/11/17 ) Cath For Specimen (03/11/17 18:23) Urine Culture (03/11/17 19:15) Blood Culture (03/11/17 19:42) Ceftriaxone Inj (Rocephin Inj) (03/11/17 19:45) Labs Laboratory Tests Test 03/11/17 03/11/17 18:45 19:15 White Blood Count 7.7 TH/MM3 Red Blood Count 3.27 MIL/MM3 Hemoglobin 9.5 GM/DL Hematocrit 28.2 % Mean Corpuscular Volume 86.0 FL Mean Corpuscular Hemoglobin 28.9 PG Mean Corpuscular Hemoglobin 33.6 % Concent Red Cell Distribution Width 15.8 % Platelet Count 359 TH/MM3 Mean Platelet Volume 6.6 FL Neutrophils (%) (Auto) 78.2 % Lymphocytes (%) (Auto) 10.0 % Monocytes (%) (Auto) 8.6 % Eosinophils (%) (Auto) 2.8 % Basophils (%) (Auto) 0.4 % Neutrophils # (Auto) 6.0 TH/MM3 Lymphocytes # (Auto) 0.8 TH/MM3 Monocytes # (Auto) 0.7 TH/MM3 Eosinophils # (Auto) 0.2 TH/MM3 Basophils # (Auto) 0.0 TH/MM3 CBC Comment DIFF FINAL Differential Comment Prothrombin Time 24.1 SEC Prothromb Time International 2.1 RATIO Ratio Activated Partial 37.1 SEC Thromboplast Time Sodium Level 144 MEQ/L Potassium Level 3.9 MEQ/L Chloride Level 105 MEQ/L Carbon Dioxide Level 30.2 MEQ/L Anion Gap 9 MEQ/L Blood Urea Nitrogen 30 MG/DL Creatinine 1.70 MG/DL Estimat Glomerular Filtration 38 ML/MIN Rate Random Glucose 90 MG/DL Calcium Level 7.8 MG/DL Total Bilirubin 0.4 MG/DL Aspartate Amino Transf 15 U/L (AST/SGOT) Alanine Aminotransferase 8 U/L (ALT/SGPT) Alkaline Phosphatase 99 U/L Ammonia 24 MCMOL/L Total Protein 6.1 GM/DL Albumin 2.8 GM/DL Thyroid Stimulating Hormone 1.530 uIU/ML 3rd Gen Urine Color YELLOW Urine Turbidity SLIGHT Urine pH 5.5 Urine Specific [place] 1.015 Urine Protein NEG mg/dL Urine Glucose (UA) NEG mg/dL Urine Ketones TRACE mg/dL Urine Occult Blood NEG Urine Nitrite POS Urine Bilirubin NEG Urine Leukocyte Esterase TRACE Urine RBC /hpf Urine WBC 3-5 /hpf Urine WBC Clumps FEW Urine Squamous Epithelial 0-5 /hpf Cells Urine Bacteria MANY /hpf Microscopic Urinalysis Comment CATH-CULTURE IND MDM Medical Decision Making Medical Screen Exam Complete: Yes Emergency Medical Condition: Yes Interpretation(s) EKG: Sinus, rate 62, leftward axis, LAFB, no acute ischemic abnormality. Differential Diagnosis UTI, metabolic abnormality, dehydration, intracranial abnormality, diverticulitis, colitis, intra-abdominal infection, Narrative Course Vital signs show heart rate 65, blood pressure 109/50, pulse ox 97% on room air , oral temp of 98.1F. CBC shows WBC 7.7, hemoglobin 9.5, hematocrit 28.2, platelets 359, neutrophils 70%. CMP is remarkable for BUN 30, creatinine 1.7, GFR 38 which is slightly worse than his baseline, calcium 7.8 TSH is 1.53. INR is 2.1. Stool is heme negative and brown. UA is positive for nitrites, trace leukocyte esterase, few wbc clumps, many bacteria, innumerable rbc's. Patient was started on Rocephin. Chest x-ray: Minimal basilar atelectasis. Tortuous aorta. CT head: CONCLUSION: 1. No acute findings. Mild cortical volume loss. Retention cysts in the maxillary and sphenoid sinus. CT abdomen pelvis: CONCLUSION: 1. No acute findings within the abdomen or pelvis. Moderate constipation. 2. Previous right hip replacement. 3. Trace pericardial fluid. No free fluid or free air. Patient and the patient's daughter were made aware of all findings. He is resting comfortably. He will be started on Rocephin. Given confusion, I do not believe it is safe for him to be discharged back to his left at this time. He will be admitted for overnight observation. Case discussed with hospitalist Dr. Bradley who will admit the patient to her service. [facility] Point of Care Internal Pos. & Neg. Controls: Passed Fecal Specimen Occult Blood: Negative Diagnosis Primary Impression: UTI (urinary tract infection) Qualified Code: N39.0 - Urinary tract infection with hematuria, site unspecified Additional Impression: Altered mental status Qualified Code: R41.82 - Altered mental status, unspecified altered mental status type Admitting Information Admitting Physician Requests: Observation Abelino Urbano MD Mar 11, 2017 18:36
[2017-03-11 18:54] LABS: BASOPHIL % 0.4 % (0.0-2.0); EOSINOPHIL # 0.2 TH/MM3 (0-0.4); EOSINOPHIL % 2.8 % (0.0-4.0); HEMATOCRIT 28.2 % (39.0-51.0); HEMO FLAGS DIFF FINAL; LYMPHOCYTE # 0.8 TH/MM3 (1.0-4.8); MEAN CORPUSCULAR HEMOGLOBIN 28.9 PG (27.0-34.0); MEAN CORPUSCULAR HGB CONC 33.6 % (32.0-36.0); MONO % 8.6 % (0.0-8.0); NEUT % 78.2 % (16.0-70.0); PLATELET COUNT 359 TH/MM3 (150-450); RED BLOOD COUNT 3.27 MIL/MM3 (4.50-5.90); RED CELL DISTRIBUTION WIDTH 15.8 % (11.6-17.2); WHITE BLOOD COUNT 7.7 TH/MM3 (4.0-11.0)
--- NOTE | 2017-03-11 18:56 | RADHPO ---
EXAM DATE/TIME: 03/11/2017 18:33 [facility] COMPARISON: No previous studies available for comparison. INDICATIONS : Syncope. MEDICAL HISTORY : Hypertension. CAD. Atrial fibrillation, Parkinson's. cerebrovascular disease SURGICAL HISTORY : Appendectomy. Cholecystectomy. ENCOUNTER: Initial ACUITY: 1 day PAIN SCORE: 0/10 LOCATION: Bilateral chest FINDINGS: A single view of the chest demonstrates minimal basilar atelectasis. No effusion. No pneumothorax. To rtuous aorta. Heart size upper limits normal. CONCLUSION: 1. Minimal basilar atelectasis. Tortuous aorta. Baljinder Montero MD on March 11, 2017 at 18:51 Board Certified Radiologist. This report was verified electronically.
--- NOTE | 2017-03-11 18:59 | RADHPO ---
EXAM DATE/TIME: 03/11/2017 18:41 [facility] COMPARISON: No previous studies available for comparison. INDICATIONS : Altered mental status. RADIATION DOSE: 63.75 CTDIvol (mGy) MEDICAL HISTORY : Parkinson's. Cerebrovascular disease. Cardiovascular diseaseHypertension. a SURGICAL HISTORY : Appendectomy. Cholecystectomy. ENCOUNTER: Initial ACUITY: 1 day PAIN SCALE: 0/10 LOCATION: cranial TECHNIQUE: Multiple contiguous axial images were obtained of the head. Using automated exposure control and adj ustment of the mA and/or kV according to patient size, radiation dose was kept as low as reasonably a chievable to obtain optimal diagnostic quality images. FINDINGS: CEREBRUM: The ventricles are normal for age. No evidence of midline shift, mass lesion, hemorrhage or acute in farction. No extra-axial fluid collections are seen. POSTERIOR FOSSA: The cerebellum and brainstem are intact. The 4th ventricle is midline. The cerebellopontine angle i s unremarkable. EXTRACRANIAL: The visualized portion of the orbits is intact. SKULL: The calvaria is intact. No evidence of skull fracture. CONCLUSION: 1. No acute findings. Mild cortical volume loss. Retention cysts in the maxillary and sphenoid sinus. Baljinder Montero MD on March 11, 2017 at 18:56 Board Certified Radiologist. This report was verified electronically.
[2017-03-11 19:09] LABS: CHLORIDE 105 MEQ/L (98-107); POTASSIUM 3.9 MEQ/L (3.5-5.1); SODIUM (NA) 144 MEQ/L (136-145)
[2017-03-11 19:14] LABS: ANION GAP 9 MEQ/L (5-15); APTT (PATIENT) 37.1 SEC (24.3-30.1); BICARBONATE 30.2 MEQ/L (21.0-32.0); INTERNATIONAL NORMALIZED RATIO 2.1 RATIO; PROTHROMBIN TIME - PATIENT 24.1 SEC (9.8-11.6)
[2017-03-11 19:15] LABS: BLOOD UREA NITROGEN 30 MG/DL (7-18)
[2017-03-11 19:17] LABS: ALT (GPT) 8 U/L (12-78); AST (GOT) 15 U/L (15-37)
[2017-03-11 19:18] LABS: GLOMERULAR FILTRATION RATE 38 ML/MIN (>89)
[2017-03-11 19:19] LABS: TOTAL BILIRUBIN ADULT 0.4 MG/DL (0.2-1.0)
[2017-03-11 19:20] LABS: ALKALINE PHOSPHATASE 99 U/L (45-117)
[2017-03-11 19:22] LABS: BLOOD, URINE NEG (NEG); GLUCOSE,URINE NEG (NEG); KETONE, URINE TRACE mg/dL (NEG); PH, URINE 5.5 (5.0-8.5)
--- NOTE | 2017-03-11 19:25 | RADHPO ---
EXAM DATE/TIME: 03/11/2017 18:45 [facility] COMPARISON: CT ABDOMEN & PELVIS W/O CONTRAST, May 25, 2015, 20:49. INDICATIONS : Left abdominal pain. Weakness. ORAL CONTRAST: No oral contrast ingested. RADIATION DOSE: 10.47 CTDIvol (mGy) MEDICAL HISTORY : Parkinson's. Cerebrovascular disease. Cardiovascular diseaseHypertension. SURGICAL HISTORY : Appendectomy. Cholecystectomy. ENCOUNTER: Initial ACUITY: 1 day PAIN SCALE: 2/10 LOCATION: Left abdomen TECHNIQUE: Volumetric scanning of the abdomen and pelvis was performed. Using automated exposure control and ad justment of the mA and/or kV according to patient size, radiation dose was kept as low as reasonably achievable to obtain optimal diagnostic quality images. FINDINGS: Compare May 2015. Trace pericardial fluid. Minimal cylindrical bronchiectasis right lower lobe. Ba silar scarring and atelectasis. No acute findings in the liver, spleen, adrenals, kidneys or pancreas. Stable 2 cm right renal cyst. There is moderate constipation. No bowel obstruction. No free air or free fluid. There is previous right hip replacement. No acute bony abnormalities. CONCLUSION: 1. No acute findings within the abdomen or pelvis. Moderate constipation. 2. Previous right hip replacement. 3. Trace pericardial fluid. No free fluid or free air. Baljinder Montero MD on March 11, 2017 at 19:15 Board Certified Radiologist. This report was verified electronically.
[2017-03-11 19:28] LABS: NITRITE,URINE POS (NEG); RBC, URINE 0-2 /hpf (0-3); URINE COLOR YELLOW (YELLW/STRAW)
[2017-03-11 19:29] LABS: BACTERIA, URINE MANY /hpf; COMMENT (UR) CATH-CULTURE IND; CULTURE IF INDICATED CATH CULTURE IND; SQUAMOUS EPITHELIAL CELL URINE 0-5 /hpf (0-5)
[2017-03-11] MEDS ORDERED: cefTRIAXone INJ 1,000 MG in SODIUM CHLORIDE 0.9% INJ 100 ML IV ONE (19:45)
[2017-03-11] MEDS ORDERED: ONDANSETRON HCL 4 MG/2 ML VIAL IVP PRN (20:45)
[2017-03-11] MEDS ORDERED: SODIUM CHLOR 0.9% 1000 ML INJ 1,000 ML IV ONE (20:45)
[2017-03-11] MEDS ORDERED: SODIUM CHLORIDE 0.9% FLUSH 10 ML FLUSH IV FLUSH PRN (20:45)
[2017-03-11] MEDS ORDERED: MAGNESIUM HYDROXIDE SUSP 30 ML CUP PO PRN (20:45)
[2017-03-11] MEDS ORDERED: NALOXONE HCL 0.4 MG/ML AMP IV PRN (20:45)
[2017-03-11] MEDS ORDERED: BISACODYL 10 MG SUPP RECTAL PRN (20:45)
[2017-03-11] MEDS ORDERED: LACTULOSE SYRUP 20 GM/30 ML CUP PO PRN (20:45)
[2017-03-11] MEDS ORDERED: SENNOSIDES 8.6 MG TAB PO PRN (20:45)
[2017-03-11] MEDS: DOCUSATE SODIUM 50 MG/SENNA 8.6 MG TAB PO SCH (21:00)
[2017-03-11] MEDS: SODIUM CHLORIDE 0.9% FLUSH 10 ML FLUSH IV FLUSH SCH (21:00)
[2017-03-11] MEDS ORDERED: DILTIAZEM-CD 120 MG CAP ER PO SCH (21:00)
[2017-03-11] MEDS ORDERED: DILT31TA PO (21:12)
[2017-03-11] MEDS ORDERED: WARF-23 PO (21:12)
[2017-03-11] MEDS: CARBIDOPA/LEVODOPA 25 MG/100 MG TAB PO SCH (22:39)
[2017-03-11] MEDS: ATORVASTATIN 10 MG TAB PO SCH (22:39)
[2017-03-12 07:15] LABS: AUTOMATED NEUTROPHIL # 10.4 TH/MM3 (1.8-7.7); EOSINOPHIL # 0.1 TH/MM3 (0-0.4); EOSINOPHIL % 1.1 % (0.0-4.0); HEMATOCRIT 28.1 % (39.0-51.0); LYMPH % 2.5 % (9.0-44.0); LYMPHOCYTE # 0.3 TH/MM3 (1.0-4.8); MEAN CELL VOLUME 86.1 FL (80.0-100.0); MEAN CORPUSCULAR HEMOGLOBIN 28.8 PG (27.0-34.0); MEAN CORPUSCULAR HGB CONC 33.5 % (32.0-36.0); MONO % 3.8 % (0.0-8.0); NEUT % 92.6 % (16.0-70.0); PLATELET COUNT 312 TH/MM3 (150-450); RED BLOOD COUNT 3.26 MIL/MM3 (4.50-5.90); RED CELL DISTRIBUTION WIDTH 15.5 % (11.6-17.2); WHITE BLOOD COUNT 11.2 TH/MM3 (4.0-11.0)
[2017-03-12 07:20] LABS: HEMO FLAGS AUTO DIFF
[2017-03-12 07:21] LABS: CHLORIDE 106 MEQ/L (98-107); SODIUM (NA) 142 MEQ/L (136-145)
[2017-03-12 07:24] LABS: INTERNATIONAL NORMALIZED RATIO 2.2 RATIO; PROTHROMBIN TIME - PATIENT 24.6 SEC (9.8-11.6)
[2017-03-12 07:27] LABS: ANION GAP 6 MEQ/L (5-15); BICARBONATE 29.8 MEQ/L (21.0-32.0); BLOOD UREA NITROGEN 28 MG/DL (7-18)
[2017-03-12 07:30] LABS: ALT (GPT) 8 U/L (12-78); AST (GOT) 13 U/L (15-37); GLOMERULAR FILTRATION RATE 48 ML/MIN (>89)
[2017-03-12 07:32] LABS: TOTAL BILIRUBIN ADULT 0.4 MG/DL (0.2-1.0)
[2017-03-12 07:33] LABS: ALKALINE PHOSPHATASE 93 U/L (45-117)
[2017-03-12 08:00] VITALS: BP 131/67; PULSE 73; RESP 20; TEMP 97.2; O2SAT 98
[2017-03-12 08:03] LABS: BANDS 6 % (0-6); BASOPHILS 1 % (0-2); EOSINOPHILS 1 % (0-4); NEUTROPHIL # MANUAL DIFF 10.6 TH/MM3 (1.8-7.7); POLYS (SEG NEUTROPHILS) 89 % (16-70); WBC DIFF SAMPLE 100
[2017-03-12 08:04] LABS: KERATOCYTES OCC (NORMAL); OVALOCYTES 2+ (NORMAL); PLATELET ESTIMATE SMEAR NORMAL (NORMAL); PLATELET MORPHOLOGY NORMAL (NORMAL); ROULEAUX PRESENT (NORMAL); SCAN/DIFF FINAL DIFF MANUAL
--- NOTE | 2017-03-12 08:15 | HHI.HP ---
[facility] Service [facility] Primary Care Physician Malu Spence MD Admission Diagnosis UTI, AMS Diagnoses: (1) Encephalopathy due to infection Diagnosis: Principal (2) Urinary tract infection Diagnosis: Principal (3) Acute on chronic kidney disease, stage 3 Diagnosis: Principal Chief Complaint: Altered mental status Travel History International Travel<30 Days: No Contact w/Intl Traveler <30 Da: No Traveled to Known Affected Are: No History of Present Illness Written by Neil Clements, acting as scribe for Dr. Iglesias on 03/12/17 at 08: 06. 86-year-old male with history of Parkinson's disease, chronic atrial fibrillation, Coumadin treatment, history of CVA, history of pulmonary emboli, hypertension, chronic diastolic congestive heart failure, chronic kidney disease stage III, sleep apnea who presented to the emergency department with his daughter for altered mental status. Patient is not orientated. He is orientated to person alone. Information was taken from medical records and nursing staff. Apparently the patient lives at a local assisted living facility and he did not go down for dinner as he normally does. The daughter presented with him to the emergency department and indicated that he was not acting like his normal self. She was concerned that he may have a possible infection. Patient had workup done which he department and found to have urinary tract infection. CT scan of the head did not indicate any acute abnormality. Metabolic workup was unremarkable. ER physician recommended the patient be observed in the hospital for further recommendations. Review of Systems Constitutional: DENIES: Diaphoretic episodes, Fatigue, Fever, Weight gain, Weight loss, Chills, Dizziness, Change in appetite, Night Sweats Eyes: DENIES: Blurred vision, Diplopia, Eye inflammation, Eye pain, Vision loss , Double Vision Ears, nose, mouth, throat: DENIES: Vertigo, Nasal discharge, Throat pain, Ear Pain, Running Nose, Sinus Pain Respiratory: DENIES: Apneas, Cough, Snoring, Wheezing, Hemoptysis, Sputum production, Shortness of breath Cardiovascular: DENIES: Chest pain, Palpitations, Syncope, Dyspnea on Exertion , Lower Extremity Edema, Orthopnea Gastrointestinal: DENIES: Abdominal pain, Black stools, Bloody stools, Constipation, Diarrhea, Nausea, Vomiting, Difficulty Swallowing, Anorexia Neurologic: DENIES: Abnormal gait, Headache, Localized weakness, Paresthesias, Seizures, Speech Problems, Tremor, Poor Balance Past Family Social History Past Medical History Unable to obtain information from the patient, information taken from medical records Parkinson's disease Atrial fibrillation on coumadin Chronic diastolic congestive heart failure CVA 01/2015 History of pulmonary embolism 2011 Chronic kidney disease stage III Hypertension Sleep apnea Macular degeneration History of kidney stones Past Surgical History Cholecystectomy 2010 Appendectomy 1940 Right hip replacement 2006 Reported Medications Reported Meds & Active Scripts Active Losartan (Losartan Potassium) 50 Mg Tab 25 Mg PO TUTH Reported Warfarin 5 Mg Tab 5 Mg PO DAILY Cardizem (Diltiazem HCl) 30 Mg Tab 30 Mg PO QID Ranitidine (Ranitidine HCl) 150 Mg Cap 75 Mg PO DAILY Multi Vitamin Daily (Multiple Vitamin) 1 Tab Tab 1 Tab PO DAILY Omeprazole 20 Mg Tab 20 Mg PO DAILY Ferrous Gluconate 240 Mg Tab 240 Mg PO DAILY Warfarin 7.5 Mg Tab 7.5 Mg PO EVERY OTHER DAY Colace (Docusate Sodium) 100 Mg Capsule 100 Mg PO DAILY Coumadin (Warfarin) 5 Mg Tab 5 Mg PO EVERY OTHER DAY Potassium Chloride ER (Potassium Chloride) 10 Meq Tab 10 Meq PO BID Carbidopa-Levodopa 25-100 Mg Tab 4 Tab PO TID Lipitor (Atorvastatin Calcium) 10 Mg Tab 10 Mg PO HS Metolazone 2.5 Mg Tab 2.5 Mg PO MOWEFR Furosemide 40 Mg Tab 40 Mg PO DAILY Allergies: Coded Allergies: No Known Allergies (Unverified , 03/11/17) Family History Mother and father of [place] in their 80s per patient's daughter. Brother: "kidney issues" Social History Quit smoking cigarettes 30 years ago. Denies alcohol use. Physical Exam Vital Signs Vital Signs Date Time Temp Pulse Resp B/P Pulse Ox O2 Delivery O2 Flow Rate FiO2 03/11/17 23:15 96.0 64 20 140/73 98 03/11/17 22:45 66 16 123/60 100 Room Air 03/11/17 20:40 62 16 119/72 99 Room Air 03/11/17 19:43 98.5 03/11/17 19:15 59 16 113/68 100 Room Air 03/11/17 19:15 100 Room Air 03/11/17 18:29 62 18 113/58 96 Room Air 03/11/17 18:01 98.1 65 18 109/50 97 Physical Exam GENERAL: Well-developed, well-nourished, in no acute distress. alert and orientated to person only HEENT: Head is normocephalic without any lesions or masses noted. Facial features are symmetric. Eyes: Pupils equal round reactive to light. Extraocular muscles are intact. Conjunctivae were clear. Oropharyngeal: Pharynx without any erythema edema. Tongue is midline without deviation. Buccal mucosa is moist without any masses or lesions NECK: Supple without any masses. Trachea midline no deviation. No JVD, no bruits are appreciated CARDIAC: Irregular rhythm, irregular rate. S1/S2 are heard. 2/6 ejection murmur , no gallops or rubs. LUNGS: Clear to auscultation bilaterally. No wheeze, rhonchi or rales. No use of accessory muscles on inspiration or expiration. ABDOMEN: Soft, nontender. Nondistended. Bowel sounds heard in all 4 quadrants. No organomegaly or masses. Negative rebound, negative guarding EXTREMITIES: No edema, pulses are equal bilaterally. No cyanosis or clubbing. Left heel has dry noninfected wound noted measuring 2 cm x 2 cm NEUROLOGY: Mood and affect appear appropriate. Cranial nerves II through XII grossly intact. Muscle strength 5/5 in upper and lower extremities bilaterally. Deep tendon reflexes are 2+ in upper and lower extremities bilaterally. Laboratory Laboratory Tests Test 03/11/17 03/11/17 03/12/17 18:45 19:15 06:20 White Blood Count 7.7 11.2 Red Blood Count 3.27 3.26 Hemoglobin 9.5 9.4 Hematocrit 28.2 28.1 Mean Corpuscular Volume 86.0 86.1 Mean Corpuscular Hemoglobin 28.9 28.8 Mean Corpuscular Hemoglobin 33.6 33.5 Concent Red Cell Distribution Width 15.8 15.5 Platelet Count 359 312 Mean Platelet Volume 6.6 7.0 Neutrophils (%) (Auto) 78.2 92.6 Lymphocytes (%) (Auto) 10.0 2.5 Monocytes (%) (Auto) 8.6 3.8 Eosinophils (%) (Auto) 2.8 1.1 Basophils (%) (Auto) 0.4 0.0 Neutrophils # (Auto) 6.0 10.4 Lymphocytes # (Auto) 0.8 0.3 Monocytes # (Auto) 0.7 0.4 Eosinophils # (Auto) 0.2 0.1 Basophils # (Auto) 0.0 0.0 CBC Comment DIFF FINAL AUTO DIFF Differential Comment Prothrombin Time 24.1 24.6 Prothromb Time International 2.1 2.2 Ratio Activated Partial 37.1 Thromboplast Time Sodium Level 144 142 Potassium Level 3.9 4.0 Chloride Level 105 106 Carbon Dioxide Level 30.2 29.8 Anion Gap 9 6 Blood Urea Nitrogen 30 28 Creatinine 1.70 1.40 Estimat Glomerular Filtration 38 48 Rate Random Glucose 90 91 Calcium Level 7.8 8.1 Total Bilirubin 0.4 0.4 Aspartate Amino Transf 15 13 (AST/SGOT) Alanine Aminotransferase 8 8 (ALT/SGPT) Alkaline Phosphatase 99 93 Ammonia 24 Total Protein 6.1 5.8 Albumin 2.8 2.7 Thyroid Stimulating Hormone 1.530 3rd Gen Urine Color YELLOW Urine Turbidity SLIGHT Urine pH 5.5 Urine Specific [place] 1.015 Urine Protein NEG Urine Glucose (UA) NEG Urine Ketones TRACE Urine Occult Blood NEG Urine Nitrite POS Urine Bilirubin NEG Urine Leukocyte Esterase TRACE Urine RBC Urine WBC 3-5 Urine WBC Clumps FEW Urine Squamous Epithelial 0-5 Cells Urine Bacteria MANY Microscopic Urinalysis Comment CATH-CULTURE IND Date/Time Procedure Status Source Growth 03/11/17 20:00 Aerobic Blood Culture Received Blood Peripheral Pending 03/11/17 20:00 Anaerobic Blood Culture Received Blood Peripheral Pending 03/11/17 19:15 Urine Culture Received Urine Catheterized Urine Pending Result Diagram: 03/12/1720 03/12/17619 Imaging Last Impressions Head CT 03/11/171822 Signed Impressions: Service Date/Time: Saturday, March 11, 2017 18:41 - CONCLUSION: 1. No acute findings. Mild cortical volume loss. Retention cysts in the maxillary and sphenoid sinus. Baljinder Montero MD Chest X-Ray 03/11/171822 Signed Impressions: Service Date/Time: Saturday, March 11, 2017 18:33 - CONCLUSION: 1. Minimal basilar atelectasis. Tortuous aorta. Baljinder Montero MD Abdomen/Pelvis CT 03/11/17 0000 Signed Impressions: Service Date/Time: Saturday, March 11, 2017 18:45 - CONCLUSION: 1. No acute findings within the abdomen or pelvis. Moderate constipation. 2. Previous right hip replacement. 3. Trace pericardial fluid. No free fluid or free air. Baljinder Montero MD Assessment and Plan Assessment and Plan //Encephalopathy due to infection, dehydration -CT scan of the brain did not indicate any acute abnormality -Ammonia level was normal -Continue monitor neurological function -Awaiting family to see if patient has returned to baseline -Obtain physical therapy evaluation //Urinary tract infection -Continue Rocephin IV at this time -Continue monitor urine culture for appropriate antibiotics -[place] catheter in place //Acute renal failure superimposed on chronic kidney disease stage III -Continue cautious IV hydration secondary to congestive heart failure -Continue monitor renal function -Avoid nephrotoxins //Chronic medical illnesses to include hypertension, chronic diastolic congestive heart failure, chronic atrial fibrillation on Coumadin, Parkinson's, -Continue home medications //DVT prevention -Coumadin with INR 2.2 Discussed Condition With This note was transcribed by scribe [Neil Clements]. I, Dr. Kem Iglesias personally performed the history, physical exam, and medical decision making; and confirmed the accuracy of the information in the transcribed note. Authenticated by Dr. Kem Iglesias on 03/14/17 at 00:08. Problem Qualifiers (1) Urinary tract infection: Qualified Code: N39.0 - Urinary tract infection without hematuria, site unspecified Neil Clements Mar 12, 2017 08:15 Kem Iglesias MD Mar 14, 2017 00:08
[2017-03-12] MEDS ORDERED: CARBIDOPA/LEVODOPA 25 MG/100 MG TAB PO SCH (09:00)
[2017-03-12] MEDS: SODIUM CHLORIDE 0.9% FLUSH 10 ML FLUSH IV FLUSH SCH ×2 (10:27→21:11)
[2017-03-12] MEDS: DILTIAZEM HCL 30 MG TAB PO SCH ×4 (10:27→21:11)
[2017-03-12] MEDS: FERROUS SULFATE 325 MG (65 MG ELEMENTAL IRON) TAB PO SCH (10:28)
[2017-03-12] MEDS: FAMOTIDINE 20 MG TAB PO SCH (10:28)
[2017-03-12] MEDS: MULTIVITAMIN TAB PO SCH (10:28)
[2017-03-12] MEDS: DOCUSATE SODIUM 100 MG CAP PO SCH (10:28)
[2017-03-12] MEDS: DOCUSATE SODIUM 50 MG/SENNA 8.6 MG TAB PO SCH ×2 (10:28→21:11)
[2017-03-12] MEDS: CARBIDOPA/LEVODOPA 25 MG/100 MG TAB PO SCH ×3 (10:28→18:30)
[2017-03-12 12:00] VITALS: BP 138/60; PULSE 68; RESP 20; TEMP 97.2; O2SAT 95
[2017-03-12 16:00] VITALS: BP 136/64; PULSE 72; RESP 20; TEMP 97.6; O2SAT 96
[2017-03-12] MEDS ORDERED: WARFARIN SOD 5 MG TAB PO SCH (16:00)
[2017-03-12 20:00] VITALS: BP 120/62; PULSE 68; RESP 16; TEMP 97.9; O2SAT 95
[2017-03-12] MEDS ORDERED: cefTRIAXone INJ 1,000 MG in SODIUM CHLORIDE 0.9% INJ 100 ML IV SCH (21:00)
[2017-03-12] MEDS ORDERED: DILTIAZEM-CD 240 MG CAP ER PO SCH (21:00)
[2017-03-12] MEDS: ATORVASTATIN 10 MG TAB PO SCH (21:11)
[2017-03-13] VITALS: BP 106/50; PULSE 56; RESP 18; TEMP 98; O2SAT 96
[2017-03-13 08:00] VITALS: BP 158/77; PULSE 56; RESP 16; TEMP 97.2; O2SAT 97
[2017-03-13] MEDS ORDERED: WARFARIN SOD 5 MG TAB PO SCH (09:00)
[2017-03-13] MEDS: DOCUSATE SODIUM 100 MG CAP PO SCH (09:19)
[2017-03-13] MEDS: MULTIVITAMIN TAB PO SCH (09:19)
[2017-03-13] MEDS: CARBIDOPA/LEVODOPA 25 MG/100 MG TAB PO SCH ×2 (09:19→13:58)
[2017-03-13] MEDS: DILTIAZEM HCL 30 MG TAB PO SCH ×2 (09:20→14:02)
[2017-03-13] MEDS: DOCUSATE SODIUM 50 MG/SENNA 8.6 MG TAB PO SCH (09:20)
[2017-03-13] MEDS: FAMOTIDINE 20 MG TAB PO SCH (09:20)
[2017-03-13] MEDS: FERROUS SULFATE 325 MG (65 MG ELEMENTAL IRON) TAB PO SCH (09:21)
[2017-03-13] MEDS: SODIUM CHLORIDE 0.9% FLUSH 10 ML FLUSH IV FLUSH SCH (09:28)
--- NOTE | 2017-03-13 09:52 | HHI.PR ---
Subjective Remarks Written by Neil Clements, acting as scribe for Dr. Iglesias on 03/13/17 at 09: 47. Patient seen and examined today with Dr. Iglesias. Patient is lying in bed, resting carefully. He states that he is doing well. Denies any new complaints. States that he is strong and wants to go home. Discussed with daughter at bedside. She indicates the patient is back to baseline and significantly improved. She is asking if we can have the patient discharged back to [facility] today. She indicates that he is undergoing physical therapy, home health care at the [facility] at this time. Objective Vitals Vital Signs Date Time Temp Pulse Resp B/P Pulse Ox O2 Delivery O2 Flow Rate FiO2 03/13/17 08:00 97.2 56 16 158/77 97 03/13/17 04:23 03/13/17 00:00 98.0 56 18 106/50 96 03/12/17 20:00 97.9 68 16 120/62 95 03/12/17 16:00 97.6 72 20 136/64 96 03/12/17 12:00 97.2 68 20 138/60 95 I/O 03/12/17 03/12/17 03/12/17 03/13/17 03/13/17 03/13/17 07:00 15:00 23:00 07:00 15:00 23:00 Intake Total 357 ml 675 ml 115 ml Output Total 600 ml 875 ml Balance -243 ml 675 ml 115 ml -875 ml Intake Oral 120 ml 675 ml IV Total 237 ml 115 ml Output Urine Total 600 ml 875 ml # Voids 1 3 3 # Bowel Movements 0 3 Result Diagram: 03/12/1720 03/12/17 0620 Objective Remarks GENERAL: Well-developed, well-nourished, in no acute distress. alert and orientated to person only HEENT: Head is normocephalic without any lesions or masses noted. Facial features are symmetric. Eyes: Extraocular muscles are intact. Conjunctivae were clear. NECK: Supple without any masses. Trachea midline no deviation. No JVD, CARDIAC: Irregular rhythm, irregular rate. S1/S2 are heard. 2/6 ejection murmur , no gallops or rubs. LUNGS: Clear to auscultation bilaterally. No wheeze, rhonchi or rales. No use of accessory muscles on inspiration or expiration. ABDOMEN: Soft, nontender. Nondistended. Bowel sounds heard in all 4 quadrants. No organomegaly or masses. Negative rebound, negative guarding EXTREMITIES: No edema, pulses are equal bilaterally. No cyanosis or clubbing. Left heel has dry noninfected wound noted measuring 2 cm x 2 cm NEUROLOGY: Mood and affect appear appropriate. Cranial nerves II through XII grossly intact. Moving all extremities, speech is clear Urinary Catheter: Yes Assessment to: Remove England insert reason: Measure Accurate Output Vascular Central Line Catheter: No A/P Assessment and Plan //Encephalopathy due to infection, dehydration, improved -CT scan of the brain did not indicate any acute abnormality -Ammonia level was normal -Continue monitor neurological function -Discussed with family who indicates that the patient is significantly improved and back to baseline since yesterday -Physical therapy evaluation, patient walking 40 feet with rolling walker, contact guard. therapy recommending home with home PT //Urinary tract infection -Continue Rocephin IV at this time -Continue monitor urine culture for appropriate antibiotics -Discontinue England catheter //Acute renal failure superimposed on chronic kidney disease stage III, improving -Continue cautious IV hydration secondary to congestive heart failure -Continue monitor renal function -Avoid nephrotoxins //Chronic medical illnesses to include hypertension, chronic diastolic congestive heart failure, chronic atrial fibrillation on Coumadin, Parkinson's, -Continue home medications //DVT prevention -Coumadin with INR 2.2 Discharge Planning Discharge planning back to assisted living facility Activity: Ad guillermo. Diet: Healthy heart diet Medications per medication reconciliation Follow-up primary medical doctor in one week we'll continue course of Bactrim to complete treatment for complex UTI. discussed with daughter that there is a second Gram negative andrew growing in urine culture. She'll make sure to follow-up with primary care to obtain results. This note was transcribed by [email or web address] [Neil Clements]. I, Dr. Kem Iglesias personally performed the history, physical exam, and medical decision making; and confirmed the accuracy of the information in the transcribed note. Authenticated by Dr. Kem Iglesias on 03/13/17 at 23:46. Neil Clements Mar 13, 2017 09:52 Kem Iglesias MD Mar 13, 2017 23:48
--- NOTE | 2017-03-13 09:53 | HHI.FF ---
Face to Face Verification Diagnosis: (1) Encephalopathy due to infection (2) Acute on chronic kidney disease, stage 3 (3) Urinary tract infection Physical Therapy Order: Evaluate and Treat, Improve ambulation, Strength and gait training Home Health Nursing Order: Signs/symptoms of disease process Nursing assessment with vital signs I have seen patient Gasper Reis on 03/13/17. My clinical findings support the need for the requested home health care services because: Deconditioned w/ increased weakness Impaired cognition/judgement I certify that my clinical findings support that this patient is homebound because: Unsteady gait/balance Neil Clements Mar 13, 2017 09:53
--- NOTE | 2017-03-13 10:04 | EKG ---
Date Performed: 03/11/2017 Time Performed: 18:23:50 PTAGE: 86 years EKG: Sinus rhythm Left anterior fascicular block Borderline ECG PREVIOUS TRACING : 01/21/2017 21.02 DOCTOR: Naveed Walker Interpretating Date/Time 03/13/2017 09:51:24
[2017-03-13 10:34] LABS: AUTOMATED NEUTROPHIL # 5.5 TH/MM3 (1.8-7.7); BASOPHIL % 0.5 % (0.0-2.0); EOSINOPHIL # 0.1 TH/MM3 (0-0.4); HEMATOCRIT 28.7 % (39.0-51.0); HEMO FLAGS DIFF FINAL; LYMPH % 9.2 % (9.0-44.0); LYMPHOCYTE # 0.6 TH/MM3 (1.0-4.8); MEAN CELL VOLUME 85.2 FL (80.0-100.0); MEAN CORPUSCULAR HEMOGLOBIN 28.6 PG (27.0-34.0); MEAN CORPUSCULAR HGB CONC 33.6 % (32.0-36.0); MONO % 9.6 % (0.0-8.0); NEUT % 78.7 % (16.0-70.0); PLATELET COUNT 325 TH/MM3 (150-450); RED BLOOD COUNT 3.37 MIL/MM3 (4.50-5.90); RED CELL DISTRIBUTION WIDTH 15.1 % (11.6-17.2); WHITE BLOOD COUNT 6.8 TH/MM3 (4.0-11.0)
[2017-03-13] MEDS ORDERED: BACT800T5 PO (11:56)
[2017-03-13 12:00] VITALS: BP 154/70; PULSE 61; RESP 22; TEMP 97.8; O2SAT 96
[2017-03-13] MEDS ORDERED: WARFARIN SOD 7.5 MG TAB PO SCH (16:00)
--- NOTE | 2017-03-14 09:50 | PD.WCN.NOT ---
Wound Consult Description: Patient not seen by wound care. Patient discharged. Jailene Cisneros [facility] Mar 14, 2017 09:50
== END 2017-03-13 14:26 ==
LOC: PHED 17:59 → PHEDA 20:38 → PH3A 22:53
PROVIDERS: ADMIT Internal Medicine; ATTEND Internal Medicine
DX: N39.0 Urinary tract infection, site not specified (principal); G94 Other disorders of brain in diseases classified elsewhere; E86.0 Dehydration; I13.0 Hypertensive heart and chronic kidney disease with heart failure and stage 1 through stage 4 chronic kidney disease, or unspecified chronic kidney disease; N18.3 Chronic kidney disease, stage 3 (moderate); I50.32 Chronic diastolic (congestive) heart failure; N17.9 Acute kidney failure, unspecified; G20 Parkinson's disease; I48.2 Chronic atrial fibrillation; B96.1 Klebsiella pneumoniae [K. pneumoniae] as the cause of diseases classified elsewhere; G47.30 Sleep apnea, unspecified; D64.9 Anemia, unspecified; I25.10 Atherosclerotic heart disease of native coronary artery without angina pectoris; Z79.01 Long term (current) use of anticoagulants; Z86.73 Personal history of transient ischemic attack (TIA), and cerebral infarction without residual deficits; Z86.711 Personal history of pulmonary embolism; Z96.641 Presence of right artificial hip joint; Z87.891 Personal history of nicotine dependence; E78.00 Pure hypercholesterolemia, unspecified; Z99.81 Dependence on supplemental oxygen
CPT/HCPCS: 70450; 71010; 74176; 80053; 81001; 82140; 84443; 85007; 85025; 85027; 85610; 85730; 87040; 87077; 87086; 87186; 93005; 96361; 96374; 97162; 99285; G0378; G8987; G8988; J0696; J7030

== ENCOUNTER 2017-04-02 19:57 | Emergency (ER) | payer MEDICARE ==
[~2017-04-02] VITALS: Ht 175.3 cm; Wt 68.6 kg
[~2017-04-02 19:57] MED LIST changes: +BACT800T5 PO; -CHOL1CHW5 CHEW; +COLA100C PO; +COUM5TAB PO; -COUM7.5T PO; +FERR240T PO; -IRON18TA2 PO; -LOSA50TA PO; +MULT1TAB46 PO; -MULT1TAB85 PO; +OMEP20TA PO; +RANI150C PO; +WARF-21 PO; +WARF-23 PO; -ZANTTAB9 PO
[2017-04-02 20:09] VITALS: BP 113/56; PULSE 62; RESP 20; TEMP 97.5; O2SAT 94
--- NOTE | 2017-04-02 20:37 | PD ---
HPI Chief Complaint: Head Injury Time Seen by Provider: 20:34 Travel History International Travel<30 days: No Contact w/Intl Traveler<30days: No Traveled to known affect area: No History of Present Illness HPI The patient is an 86-year-old male that has a sore on his heel and wears a orthopedic device on his foot and this got caught and he lost balance and fell today hitting his right forehead. He is on Coumadin because of atrial fibrillation. There is been no nausea, vomiting or focal neurologic change. He does not have a headache. PFSH Past Medical History Hx Anticoagulant Therapy: Yes (COUMADIN) Anemia: Yes Arthritis: Yes Asthma: No Atrial Fibrillation: Yes Autoimmune Disease: No Blood Disorders: No Anxiety: No Depression: No Heart Rhythm Problems: Yes (afib ) Cancer: No Cardiovascular Problems: Yes (A-FIB) High Cholesterol: Yes Chemotherapy: No Chest Pain: No Congestive Heart Failure: No Cerebrovascular Accident: Yes (2014) Coronary Artery Disease: Yes Diabetes: No Diminished Hearing: Yes Endocrine: No Gastrointestinal Disorders: No GERD: No Gout: Yes Genitourinary: Yes (3rd stage kidney disease) Hiatal Hernia: No Hypertension: Yes Immune Disorder: No Implanted Vascular Access Dvce: Yes Kidney Stones: No Musculoskeletal: No Neurologic: Yes (parkinsons ) Parkinson's Disease: Yes Psychiatric: No Reproductive: No Respiratory: No Migraines: No Radiation Therapy: No Renal Failure: Yes Seizures: No Sickle Cell Disease: No Sleep Apnea: Yes (CPAP AT NIGHT) Ulcer: No Past Surgical History Abdominal Surgery: Yes (gallbladder, appendix) AICD: No Appendectomy: Yes Arteriovenous Shunt: No Body Medical Devices: RT HIP REPLACEMENT Cholecystectomy: Yes Eye Surgery: Yes (CATARACTS) Insulin Pump: No Joint Replacement: Yes (HIP) Pacemaker: No Other Surgery: Yes Social History Alcohol Use: No Tobacco Use: No Substance Use: No Allergies-Medications (Allergen,Severity, Reaction): Coded Allergies: No Known Allergies (Unverified , 03/11/17) Reported Meds & Prescriptions Reported Meds & Active Scripts Active Reported Vitamin D3 (Cholecalciferol) 1,000 Unit Chew 1,000 Units CHEW DAILY Trazodone (Trazodone HCl) 50 Mg Tab 50 Mg PO HS Warfarin 5 Mg Tab 5 Mg PO DAILY Cardizem (Diltiazem HCl) 30 Mg Tab 30 Mg PO QID Ranitidine (Ranitidine HCl) 150 Mg Cap 75 Mg PO DAILY Multi Vitamin Daily (Multiple Vitamin) 1 Tab Tab 1 Tab PO DAILY Omeprazole 20 Mg Tab 20 Mg PO DAILY Ferrous Gluconate 240 Mg Tab 240 Mg PO DAILY Warfarin 7.5 Mg Tab 7.5 Mg PO EVERY OTHER DAY Colace (Docusate Sodium) 100 Mg Capsule 100 Mg PO DAILY Coumadin (Warfarin) 5 Mg Tab 5 Mg PO EVERY OTHER DAY Potassium Chloride ER (Potassium Chloride) 10 Meq Tab 10 Meq PO BID Carbidopa-Levodopa 25-100 Mg Tab 4 Tab PO TID Lipitor (Atorvastatin Calcium) 10 Mg Tab 10 Mg PO HS Metolazone 2.5 Mg Tab 2.5 Mg PO MOWEFR Furosemide 40 Mg Tab 40 Mg PO DAILY Review of Systems Except as stated in HPI: all other systems reviewed are Neg Physical Exam Narrative GENERAL: Well-nourished, well-developed patient who is alert and oriented in minimal apparent distress with a hematoma on his right forehead. SKIN: Focused skin assessment warm/dry. HEAD: Normocephalic. There is a 4 x 2 cm hematoma in the right forehead with no associated bony deformity of the skull. Neither raccoon eyes or pradhan sign is present. EYES: No scleral icterus. No injection or drainage. NECK: Supple, trachea midline. No JVD or lymphadenopathy. CARDIOVASCULAR: Regular rate and rhythm without murmurs, gallops, or rubs. RESPIRATORY: Breath sounds equal bilaterally. No accessory muscle use. GASTROINTESTINAL: Abdomen soft, non-tender, nondistended. MUSCULOSKELETAL: No cyanosis, or edema. BACK: Nontender without obvious deformity. No CVA tenderness. ENT: There is no hemotympanum present. There is no blood in the nose or blood coursing down the posterior pharyngeal wall. Data Data Last Documented VS Vital Signs Date Time Temp Pulse Resp B/P Pulse Ox O2 Delivery O2 Flow Rate FiO2 04/02/17 20:09 97.5 62 20 113/[address] Brain W/O Iv Contrast(Rout) (04/02/17 20:34) [facility] Medical Decision Making Medical Screen Exam Complete: Yes Emergency Medical Condition: Yes Medical Record Reviewed: Yes Interpretation(s) The CT brain shows right frontal scalp swelling but no acute intracranial abnormality. Differential Diagnosis Forehead hematoma, fractured skull, intracranial bleed Narrative Course The patient has a right forehead hematoma. There is no evidence neither clinical nor by imaging of any intracranial bleed. Diagnosis Primary Impression: Traumatic hematoma of forehead Additional Instructions: Ice and elevation and other treatment for this. This will eventually break down and turn different colors and sometimes the blood works its way to around the eyes giving him black eyes. This is actually the expected behavior of a hematoma. Take plain Tylenol for pain. Follow-up with her primary care physician next week. Med/Other Pt SpecificInfo: No Change to Meds Disposition: 01 DISCHARGE HOME Condition: Stable London Clements MD Apr 02, 2017 20:37
--- NOTE | 2017-04-02 21:26 | RADRPT ---
EXAM DATE/TIME: 04/02/2017 20:40 [facility] COMPARISON: CT BRAIN W/O CONTRAST, March 11, 2017, 18:41. INDICATIONS : Trauma. Fall. Right frontal contusion. RADIATION DOSE: 66.08 CTDIvol (mGy) MEDICAL HISTORY : Cardiovascular disease. Parkinsons. Hypertension. SURGICAL HISTORY : Cholecystectomy. Appendectomy. ENCOUNTER: Initial ACUITY: 1 day PAIN SCALE: 5/10 LOCATION: Right cranial TECHNIQUE: Multiple contiguous axial images were obtained of the head. Using automated exposure control and adj ustment of the mA and/or kV according to patient size, radiation dose was kept as low as reasonably a chievable to obtain optimal diagnostic quality images. DICOM format image data is available electro nically for review and comparison. FINDINGS: CEREBRUM: The ventricles and cortical sulci are widened. No evidence of midline shift, mass lesion, hemorrhage or acute infarction. No extra-axial fluid collections are seen. POSTERIOR FOSSA: The cerebellum and brainstem are intact. The 4th ventricle is midline. The cerebellopontine angle i s unremarkable. EXTRACRANIAL: The visualized portion of the orbits is intact. There is soft tissue swelling at the right frontal sc alp. There is bilateral maxillary sinus disease. There is right sphenoid and left ethmoid sinus disea se. SKULL: The calvaria is intact. No evidence of skull fracture. CONCLUSION: 1. No acute intracranial abnormality is seen. 2. Atrophy. 3. Right frontal scalp swelling. Jose Alberto Hollingsworth MD on April 02, 2017 at 21:22 Board Certified Radiologist. This report was verified electronically.
[2017-04-02] MEDS ORDERED: CHOL100025 CHEW (21:27)
[2017-04-02] MEDS ORDERED: TRAZ50TA12 PO (21:27)
[2017-04-02 22:54] VITALS: BP 118/56
== END 2017-04-02 23:31 | disposition home or self-care (01) ==
LOC: PHED 19:57
DX: S00.83XA Contusion of other part of head, initial encounter (principal); G20 Parkinson's disease; I10 Essential (primary) hypertension; I25.10 Atherosclerotic heart disease of native coronary artery without angina pectoris; E78.00 Pure hypercholesterolemia, unspecified; L98.9 Disorder of the skin and subcutaneous tissue, unspecified; I48.91 Unspecified atrial fibrillation; D64.9 Anemia, unspecified; M19.90 Unspecified osteoarthritis, unspecified site; Z96.641 Presence of right artificial hip joint; Z79.01 Long term (current) use of anticoagulants; W01.10XA Fall on same level from slipping, tripping and stumbling with subsequent striking against unspecified object, initial encounter; Y93.9 Activity, unspecified; Y92.9 Unspecified place or not applicable; Y99.9 Unspecified external cause status
CPT/HCPCS: 70450

== ENCOUNTER → 2017-07-25 | Outpatient (CLI) | payer MEDICARE ==
[~2017-07-25] MED LIST changes: -BACT800T5 PO; +CHOL100025 CHEW; +TRAZ50TA12 PO
[2017-07-25 11:20] LABS: BLOOD, URINE NEG (NEG); COMMENT (UR) CULT NOT INDICATED; CULTURE IF INDICATED CULT NOT INDICATED; GLUCOSE,URINE NEG (NEG); HYALINE CAST, URINE 4 /lpf (RARE); KETONE, URINE NEG (NEG); MUCUS URINE FEW /lpf (OCC); NITRITE,URINE NEG (NEG); PH, URINE 5.5 (5.0-8.5); URINE COLOR YELLOW (YELLW/STRAW)
== END ==
LOC: PLAB 10:37
PROVIDERS: ATTEND Family Medicine
DX: N39.0 Urinary tract infection, site not specified (principal); A49.9 Bacterial infection, unspecified
CPT/HCPCS: 81001

== ENCOUNTER → 2017-10-07 | Outpatient (CLI) | payer MEDICARE ==
[~2017-10-07] MED LIST changes: -COLA100C PO; +COLA100C5 PO; -OMEP20TA PO; +OMEP20TA93 PO
[2017-10-07 08:06] LABS: BACTERIA, URINE MOD /hpf; BILIRUBIN, URINE NEG (NEG); BLOOD, URINE NEG (NEG); GLUCOSE,URINE NEG (NEG); KETONE, URINE NEG (NEG); NITRITE,URINE POS (NEG); PH, URINE 6.5 (5.0-8.5); URINE COLOR LIGHT-YELLOW (YELLW/STRAW); URINE LEUKOCYTE ESTERASE LARGE (NEG)
== END ==
LOC: PLAB 07:26
DX: N39.0 Urinary tract infection, site not specified (principal); B96.1 Klebsiella pneumoniae [K. pneumoniae] as the cause of diseases classified elsewhere
CPT/HCPCS: 81001; 87077; 87086; 87186

== ENCOUNTER 2017-10-20 21:43 | Emergency (ER) | payer MEDICARE ==
[~2017-10-20] VITALS: Ht 177.8 cm; Wt 69.0 kg
[2017-10-20 21:49] VITALS: BP 124/77; PULSE 61; RESP 20; TEMP 97.2; O2SAT 96
[2017-10-20] MEDS ORDERED: COUM10TA PO (22:09)
[2017-10-20] MEDS ORDERED: LOSA25TA PO (22:09)
[2017-10-20] MEDS ORDERED: COUM7.5T PO (22:09)
--- NOTE | 2017-10-20 23:41 | PD ---
HPI Chief Complaint: Laceration/Skin Injury Time Seen by Provider: 23:37 Travel History International Travel<30 days: No Contact w/Intl Traveler<30days: No Traveled to known affect area: No History of Present Illness HPI The patient is an 87-year-old male that lost balance and fell and hit his left eyebrow at about 9 PM tonight. There apparently was no loss of consciousness, the patient does not have a headache and there is been no nausea or vomiting. This happened at the [facility]. His last tetanus shot was 2 years ago. PFSH Past Medical History Hx Anticoagulant Therapy: Yes (COUMADIN) Anemia: Yes Arthritis: Yes Asthma: No Atrial Fibrillation: Yes Autoimmune Disease: No Blood Disorders: No Anxiety: No Depression: No Heart Rhythm Problems: Yes Cancer: No Cardiovascular Problems: Yes (A-FIB) High Cholesterol: Yes Chemotherapy: No Chest Pain: No Congestive Heart Failure: No Cerebrovascular Accident: Yes (2014) Coronary Artery Disease: Yes Diabetes: No Diminished Hearing: Yes Endocrine: No Gastrointestinal Disorders: No GERD: No Gout: Yes Genitourinary: Yes Hiatal Hernia: No Hypertension: Yes Immune Disorder: No Implanted Vascular Access Dvce: Yes Kidney Stones: No Musculoskeletal: No Neurologic: Yes (PARKINSONS) Parkinson's Disease: Yes Psychiatric: No Reproductive: No Respiratory: No Migraines: No Radiation Therapy: No Renal Failure: Yes Seizures: No Sickle Cell Disease: No Sleep Apnea: Yes (CPAP AT NIGHT) Ulcer: No Influenza Vaccination: Yes ?: Not Past Surgical History Abdominal Surgery: Yes AICD: No Appendectomy: Yes Arteriovenous Shunt: No Body Medical Devices: RT HIP REPLACEMENT Cholecystectomy: Yes Eye Surgery: Yes (CATARACTS) Insulin Pump: No Joint Replacement: Yes (HIP) Pacemaker: No Other Surgery: Yes Social History Alcohol Use: No Tobacco Use: No (1977) Substance Use: No Allergies-Medications (Allergen,Severity, Reaction): Coded Allergies: No Known Allergies (Unverified Adverse Reaction, Unknown, 10/20/17) Reported Meds & Prescriptions Reported Meds & Active Scripts Active Reported Vitamin C (Ascorbic Acid) 250 Mg Tab 500 Mg PO BID Tylenol (Acetaminophen) 325 Mg Tab 650 Mg PO Q6H PRN Preservision Areds (Multiple Vitamins W/ Minerals) 1 Tab 1 Tab PO BID Imodium A-D (Loperamide HCl) 2 Mg Capsule 2 Mg PO DAILY One capsule after each loose stool. Not to exceed 8 tablets per day. Fergon (Ferrous Gluconate) 270 Mg (27 Mg Iron) Tablet 270 Mg PO DAILY Docusate Sodium 100 Mg Cap 100 Mg PO BID PRN Losartan (Losartan Potassium) 25 Mg Tab 25 Mg PO DAILY Coumadin (Warfarin) 7.5 Mg Tab 7.5 Mg PO DAILY Coumadin (Warfarin) 10 Mg Tab 10 Mg PO TU, THURS Vitamin D3 (Cholecalciferol) 1,000 Unit Chew 2,000 Units CHEW DAILY Trazodone (Trazodone HCl) 50 Mg Tab 50 Mg PO HS Cardizem (Diltiazem HCl) 30 Mg Tab 30 Mg PO QID Ranitidine (Ranitidine HCl) 150 Mg Cap 75 Mg PO DAILY Multi Vitamin Daily (Multiple Vitamin) 1 Tab Tab 1 Tab PO DAILY Omeprazole 20 Mg Tab 20 Mg PO DAILY Potassium Chloride ER (Potassium Chloride) 10 Meq Tab 10 Meq PO BID Carbidopa-Levodopa 25-100 Mg Tab 4 Tab PO TID Lipitor (Atorvastatin Calcium) 10 Mg Tab 10 Mg PO HS Metolazone 2.5 Mg Tab 2.5 Mg PO MOWEFR Furosemide 40 Mg Tab 20 Mg PO DAILY Review of Systems Except as stated in HPI: all other systems reviewed are Neg Physical Exam Narrative GENERAL: Well-nourished, well-developed patient. SKIN: Focused skin assessment warm/dry. The perimeter of the defect of the flap laceration is 9 cm. The available flap that I have does not include the lateral eyebrow. Apparently, there is tissue loss at the scene. HEAD: Normocephalic. EYES: No scleral icterus. No injection or drainage. NECK: Supple, trachea midline. No JVD or lymphadenopathy. CARDIOVASCULAR: Regular rate and rhythm without murmurs, gallops, or rubs. RESPIRATORY: Breath sounds equal bilaterally. No accessory muscle use. GASTROINTESTINAL: Abdomen soft, non-tender, nondistended. MUSCULOSKELETAL: No cyanosis, or edema. BACK: Nontender without obvious deformity. No CVA tenderness. Data Data Last Documented VS Vital Signs Date Time Temp Pulse Resp B/P (MAP) Pulse Ox O2 Delivery O2 Flow Rate FiO2 10/20/17 23:57 54 16 135/68 (90) 96 Room Air 10/20/17 21:[address] Brain W/O Iv Contrast(Rout) (10/20/17 23:41) [facility] Medical Decision Making Medical Screen Exam Complete: Yes Emergency Medical Condition: Yes Medical Record Reviewed: Yes Interpretation(s) The CT of the head shows sinus and changes without acute intercranial abnormality. It also shows small left periorbital soft tissue hematoma and bilateral paranasal sinus mucosal disease. Differential Diagnosis Flap laceration, tissue loss, intracranial bleed, skull fracture Narrative Course The flap did not conform to the contour of the defect. I could not find the lateral portion of the patient's eyebrow. Apparently, the patient did have some skin loss. The tissue was stretched over the defect but it is recommended to the patient and family that they see a plastic surgeon as soon as possible. The patient is able to open these eyes and closing his eyes without a problem. Except for the expected swelling from the trauma which makes opening his eyes more difficult, the laceration does not appear to be affecting lid function. Clinically and by CT evaluation there is no evidence for intracranial bleed or skull fracture. Procedures Procedure Narrative The area was prepped with Betadine. Under sterile technique, the wound was copiously irrigated with saline. I tried to straighten out the flap and could not find the lateral portion of the eyebrow. Apparently, there was tissue loss there. There perimeter of the defect was about 9 cm. The flap was sewn around the 9 cm and 9 stitches were used. Diagnosis Primary Impression: Facial laceration Additional Instructions: As we discussed, follow-up with a plastic surgeon as soon as possible. There appears to be tissue loss and I could not find the lateral portion of the patient's eyebrow. Disposition: 01 DISCHARGE HOME Condition: Stable London Clements MD Oct 20, 2017 23:41
[2017-10-20] MEDS ORDERED: OCUVTAB4 PO (23:54)
[2017-10-20] MEDS ORDERED: DOCU100C15 PO (23:54)
[2017-10-20] MEDS ORDERED: FERR270T PO (23:54)
[2017-10-20] MEDS ORDERED: VITA250T3 PO (23:54)
[2017-10-20] MEDS ORDERED: TYLE325T PO (23:54)
[2017-10-20] MEDS ORDERED: LOPE-1 PO (23:54)
[2017-10-20 23:57] VITALS: BP 135/68; PULSE 54; RESP 16; O2SAT 96
--- NOTE | 2017-10-21 00:45 | RADRPT ---
EXAM DATE/TIME: 10/21/2017 00:14 [facility] COMPARISON: CT BRAIN W/O CONTRAST, April 02, 2017, 20:40. INDICATIONS : Status post fall. Laceration to left eyebrow and face. No LOC RADIATION DOSE: 63.00 CTDIvol (mGy) ; Patient positioning MEDICAL HISTORY : Cerebrovascular disease. Renal failure, chronic. Parkinsons, Coumadin therapy SURGICAL HISTORY : Cataracts ENCOUNTER: Initial ACUITY: 1 day PAIN SCALE: 5/10 LOCATION: Left cranial TECHNIQUE: Multiple contiguous axial images were obtained of the head. Using automated exposure control and adj ustment of the mA and/or kV according to patient size, radiation dose was kept as low as reasonably a chievable to obtain optimal diagnostic quality images. DICOM format image data is available electro nically for review and comparison. FINDINGS: CEREBRUM: Moderate diffuse rugal hypertrophy. The ventricles are normal for degree of atrophy. No evidence of midline shift, mass lesion, hemorrhage or acute infarction. No extra-axial fluid collections are see n. POSTERIOR FOSSA: The cerebellum and brainstem are intact. The 4th ventricle is midline. The cerebellopontine angle i s unremarkable. EXTRACRANIAL: Small left lev-orbital soft tissue hematoma. The visualized portion of the orbits is intact. Redemon stration of bilateral maxillary sinus mucus retention cysts. Chronic appearing completely opacified r ight sphenoid sinus. SKULL: The calvaria is intact. No evidence of skull fracture. CONCLUSION: 1. Senescent changes without acute intracranial normality. 2. Small left periorbital soft tissue hematoma. 3. Bilateral paranasal sinus mucosal disease. Clifford Issa MD on October 21, 2017 at 0:40 Board Certified Radiologist. This report was verified electronically.
== END 2017-10-21 01:15 | disposition home or self-care (01) ==
LOC: PHED 21:43
DX: S01.81XA Laceration without foreign body of other part of head, initial encounter (principal); W01.0XXA Fall on same level from slipping, tripping and stumbling without subsequent striking against object, initial encounter
CPT/HCPCS: 12015; 70450